=== PATIENT | male | born 1965 | race Caucasian/White ===

== ENCOUNTER 2016-08-10 19:21 | Emergency (ER) ==
[2016-08-10 19:33] VITALS: BP 157/81; TEMP 99.8; BMI 37.3
--- NOTE | 2016-08-10 19:36 | ED.PDOC ---
General ED Provider: Dr. CHEN VALDOVINOS-ER Chief Complaint: Cough Stated Complaint: im coughing up stuff and i ache all over Time Seen by Physician: 19:34 Mode of Arrival: Walk-In Information Source: Patient Exam Limitations: No limitations Primary Care Provider: KATHERIN REVELES Nursing and Triage Documentation Reviewed and Agree: Yes Respiratory Complaint Exam - Respiratory Complaint/Exam Onset/Duration: 2 days Symptoms Are: Still present Timing: Constant Initial Severity: Mild Current Severity: Mild Location: Chest Character: Reports: Non-productive cough Aggravating: Reports: URI Associated Signs and Symptoms: Reports: Fever, URI, Nasal congestion, Sore throat, Increased urination. Denies: Rapid breathing, Dyspnea, Chills, Chest pain, Pleuritic chest pain, Wheezing, Hemoptysis, Dizziness, Calf pain, Calf swelling, Edema, Hoarseness, Sinus discomfort, Vomiting, Weight loss, Decreased oral intake, Increased thirst, Increased appetite Related History: Denies: Similar episode History of Healthcare-Acquired Pneumonia: No Related Surgical History: Reports: None Tuberculosis Risk Factors: Reports: None Status Asthmaticus Risk Factors: Reports: None Home Oxygen Use: No Recent Stress Test: No Recent Echo/LV Function: No Current Antibiotic Use: No Current Asthma Medication Use: No Respiratory Distress: None Inadequate Respiratory Effort: No Dysphagia Present: No Stridor Present: No JVD Present: No Accessory Muscle Use: No Retractions: Not Present Diminished Breath Sounds: No Sinus Tenderness: None Grunting Respirations: No Kussmaul Respirations: No Differential Diagnoses: Bronchitis, URI, Influenza Review of Systems - Review Of Systems Constitutional: Reports: No symptoms Eyes: Reports: No symptoms Ears, Nose, Mouth, Throat: Reports: Nose discharge Respiratory: Reports: Cough Cardiac: Reports: No symptoms GI: Reports: No symptoms : Reports: No symptoms Musculoskeletal: Reports: No symptoms Skin: Reports: No symptoms Neurological: Reports: No symptoms Endocrine: Reports: No symptoms Hematologic/Lymphatic: Reports: No symptoms All Other Systems: Reviewed and Negative Past Medical History - Past Medical History Endocrine: Reports: Unknown Cardiovascular: Reports: Unknown Respiratory: Reports: Unknown Hematological: Reports: Unknown Gastrointestinal: Reports: Unknown Genitourinary: Reports: Unknown Neuro/Psych: Reports: Unknown Musculoskeletal: Reports: Unknown Cancer: Reports: Unknown - Surgical History General Surgical History: Reports: Unknown - Family History Family History: Reports: Unknown - Social History Smoking Status: Current every day smoker, Heavy tobacco smoker Hx Substance Use: No Alcohol Screening: None Lives: With family - Immunizations Tetanus Shot up to Date: Yes Physical Exam - Physical Exam Appearance: Well-appearing, No pain distress, Well-nourished Eyes: VICKEY, EOMI, Conjunctiva clear ENT: Ears normal, Nose normal, Oropharynx normal Neck: Supple Respiratory: Airway patent, Breath sounds equal, Respirations nonlabored, Rhonchi Cardiovascular: RRR, Pulses normal, No rub, No murmur GI/: Soft, Nontender, No masses, Bowel sounds normal, No Organomegaly Musculoskeletal: Normal strength, ROM intact, No edema, No calf tenderness Skin: Warm, Dry, Normal color Neurological: Sensation intact, Motor intact, Reflexes intact, Cranial nerves intact, Alert, Oriented Psychiatric: Affect appropriate, Mood appropriate Critical Care Note - Critical Care Note Total Time (mins): 0 Course - Course Orders, Labs, Meds: Orders Category Date Time Status RAPID FLU A/B Stat LAB 08/10/16 19:33 Uncollected Vital Signs: Temp Pulse Resp BP Pulse Ox 08/10/16 19:22 99.8 F H 93 H 20 157/81 H 97 Departure - Departure Time of Disposition: 19:36 Disposition: HOME SELF-CARE Discharge Problem: Bronchitis Instructions: Acute Bronchitis (ED) Condition: Good Pt referred to PMD for follow-up: Yes Additional Instructions: kesha medrol dose pack--tessalon perles 200mg tid prn cough 30--fluids..motrin or tylenol for aches--rcheck in 72hrs if not improved Allergies/Adverse Reactions: Allergies No Known Allergies Allergy (Verified 08/10/16 19:27) Home Medications: Ambulatory Orders Budesonide/Formoterol Fumarate [Symbicort 160-4.5 Mcg Inhaler] 1 puff INH DAILY 03/05/14 Fluticasone/Salmeterol 250/50 [Advair 250-50 Diskus] 1 puff INH DAILY 03/05/14 Metformin HCl 500 mg PO BID 03/05/14 Albuterol Sulfate [Proair Hfa] 2 puff IH Q4H PRN 08/10/16 Omeprazole Magnesium 20 mg PO DAILY 08/10/16 Disposition Discussed With: Patient, Family
[2016-08-10 20:01] LABS: FLU INTERNAL QC INTERNAL QC VALID; RAPID FLU A NEGATIVE (NEGATIVE); RAPID FLU B NEGATIVE (NEGATIVE)
== END 2016-08-10 20:07 | disposition home or self-care (01) ==
LOC: ED 19:21
DX: J20.9 Acute bronchitis, unspecified (principal); F17.210 Nicotine dependence, cigarettes, uncomplicated
CPT/HCPCS: 87804; 99283

== ENCOUNTER 2016-10-26 22:27 | Observation (INO) ==
[2016-10-26] MEDS ORDERED: ASPIRIN CHEWABLE PO STA (22:51)
--- NOTE | 2016-10-26 22:51 | ED.PDOC ---
General ED Provider: Dr. MAXI LIMA Chief Complaint: Chest Wall Injury/Pain Stated Complaint: Patient was working in the yard whole day yesterday, he is been hurting in the chest since morning, hurts to breath, and touch on the chest ,. Time Seen by Physician: 22:49 Mode of Arrival: Walk-In Information Source: Patient Primary Care Provider: KATHERIN REVELES Nursing and Triage Documentation Reviewed and Agree: Yes Cardiovascular Complaint Exam - Chest Pain Complaint/Exam Onset: Gradual Symptoms Are: Still present Timing: Constant Initial Severity: Moderate Current Severity: Mild Location: Reports: Midsternal, Upper sternal Pain Radiates: Reports: Neck Character: Reports: Sharp Aggravating: Reports: Movement, Deep breaths Alleviating: Reports: None Associated Signs and Symptoms: Denies: Diaphoresis, Nausea, Vomiting, Fever, Palpitations, Cough, Hemoptysis, Back pain, Abdominal pain, Dizziness, Short of air, Calf pain, Calf swelling Related Surgical History: Reports: None History of Healthcare-Acquired Pneumonia: Reports: No AMI/ACS Risk Factors: Reports: None TAD Risk Factors: Reports: None Pulmonary Embolism Risk Factors: Reports: None Prior Care for this Complaint: No Subcutaneous Emphysema Present: No Diminshed Breath Sounds: No Reproducible Chest Wall Pain: Yes Bilateral Pulses Present: Yes Unequal Pulses Noted: No If Risk Factors for AMI/ACS Consider: EKG, Cardiac Enzymes Differential Diagnoses: ACS, Stable Angina, Chest Wall Pain Quality Indicators For Acute CT or Cardiac Chest Pain: EKG in 10min., ASA if indicated Review of Systems - Review Of Systems Constitutional: Reports: Malaise, Weakness Eyes: Reports: No symptoms Ears, Nose, Mouth, Throat: Reports: No symptoms Respiratory: Reports: Short of air Cardiac: Reports: Chest pain GI: Reports: No symptoms : Reports: No symptoms Musculoskeletal: Reports: No symptoms Skin: Reports: No symptoms Neurological: Reports: No symptoms Endocrine: Reports: No symptoms Hematologic/Lymphatic: Reports: No symptoms All Other Systems: Reviewed and Negative Past Medical History - Past Medical History Previously Healthy: No Endocrine: Reports: DM 2 Cardiovascular: Reports: Hypertension Respiratory: Reports: COPD Hematological: Reports: None Gastrointestinal: Reports: GERD Genitourinary: Reports: None Neuro/Psych: Reports: None Musculoskeletal: Reports: None Cancer: Reports: None - Surgical History General Surgical History: Reports: Appendectomy, Cholecystectomy, Orthopedic - Family History Family History: Reports: Unknown - Social History Smoking Status: Current every day smoker, Heavy tobacco smoker Smoking Cessation Counseling Time: > 10 min Hx Substance Use: No Alcohol Screening: None - Immunizations Tetanus Shot up to Date: Yes Physical Exam - Physical Exam Appearance: Well-appearing, No pain distress, Obese Eyes: VICKEY, EOMI, Conjunctiva clear ENT: Ears normal, Nose normal, Oropharynx normal Respiratory: Airway patent, Breath sounds clear, Breath sounds equal, Respirations nonlabored Cardiovascular: RRR, Pulses normal, No rub, No murmur GI/: Soft, Nontender, No masses, Bowel sounds normal, No Organomegaly Musculoskeletal: Normal strength, ROM intact, No edema, No calf tenderness Skin: Warm, Dry, Normal color Neurological: Sensation intact, Motor intact, Reflexes intact, Cranial nerves intact, Alert, Oriented Psychiatric: Affect appropriate, Mood appropriate Critical Care Note - Critical Care Note Total Time (mins): 0 Course - Course Hematology/Chemistry: 10/26/16 22:55 10/26/16 22:55 Orders, Labs, Meds: Lab Review 10/26/16 10/26/16 22:53 22:55 WBC 14.69 H RBC 4.93 Hgb 15.0 Hct 44.2 MCV 89.7 MCH 30.4 MCHC 33.9 RDW Coeff of Rosemary 13.6 Plt Count 180 Immature Gran % (Auto) 0.4 Neut % (Auto) 62.3 Lymph % (Auto) 22.1 [place] % (Auto) 11.5 H Eos % (Auto) 3.1 Baso % (Auto) 0.6 Immature Gran # (Auto) 0.1 Neut # 9.2 H Lymph # 3.2 [place] # 1.7 Eos # 0.5 Baso # 0.1 Puncture Site Rb O2 Saturation 89.0 L ABG pH 7.397 ABG pCO2 37.8 ABG pO2 57.0 L* ABG HCO3 23.2 ABG Total CO2 24 ABG Base Excess -2 Jose Test + FiO2 % 21.0 Sodium 138 Potassium 3.9 Chloride 108 H Carbon Dioxide 20 L Anion Gap 13.9 BUN 11 Creatinine 1.09 Estimated GFR (MDRD) 71.00 BUN/Creatinine Ratio 10.09 Glucose 190 H Calcium 9.0 Total Bilirubin 0.19 AST 14 L ALT 22 Alkaline Phosphatase 64 Total Creatine Kinase 143 CK-MB (CK-2) 0.7 CK-MB (CK-2) % 0.50473 Troponin I < 0.0100 B-Natriuretic Peptide 10 Total Protein 7.8 Albumin 3.8 Globulin 4.0 Albumin/Globulin Ratio 0.95 Orders Category Date Time Status ABG DRAW REQUEST Stat CARDIO 10/26/16 22:53 Completed EKG-(ED ONLY) Stat CARDIO 10/26/16 22:46 Completed ABG Stat LAB 10/26/16 22:53 Completed B-TYPE NATRIURETIC PEPTIDE Stat LAB 10/26/16 22:55 Completed CBC W/ AUTO DIFF Stat LAB 10/26/16 22:55 Completed COMPREHENSIVE METABOLIC PANEL Stat LAB 10/26/16 22:55 Completed CREATINE KINASE Stat LAB 10/26/16 22:55 Completed TROPONIN I Stat LAB 10/26/16 22:[address] CHEST W/O CONTRAST Stat RADS 10/26/16 22:46 Completed Vital Signs: Temp Pulse Resp BP Pulse Ox 10/26/16 22:31 98.7 F 99 H 20 134/91 H 93 L KISHAN Risk Score KISHAN Risk Score: Risk Score Odds of by 30D 0 0.1 (0.1-0.2) 1 0.3 (0.2-0.3) 2 0.4 (0.3-0.5) 3 0.7 (0.6-0.9) 4 1.2 (1.0-1.5) 5 2.2 (1.9-2.6) 6 3.0 (2.5-3.6) 7 4.8 (3.8-6.1) Departure - Departure Time of Disposition: 23:49 Disposition: ADMITTED INPATIENT Discharge Problem: Hypoxemia Chest pain Qualifiers: Chest pain type: precordial pain Qualifier Code: (R07.2) Precordial pain Instructions: Chest Pain (ED), Angina (ED) Condition: Stable Pt referred to PMD for follow-up: No Allergies/Adverse Reactions: Allergies No Known Allergies Allergy (Verified 10/26/16 22:27) Home Medications: Ambulatory Orders Budesonide/Formoterol Fumarate [Symbicort 160-4.5 Mcg Inhaler] 1 puff INH DAILY 03/05/14 Fluticasone/Salmeterol 250/50 [Advair 250-50 Diskus] 1 puff INH DAILY 03/05/14 Metformin HCl 500 mg PO BID 03/05/14 Albuterol Sulfate [Proair Hfa] 2 puff IH Q4H PRN 08/10/16 Omeprazole Magnesium 40 mg PO DAILY 08/10/16 Aspirin [Aspirin EC] 325 mg PO DAILYWM PRN 10/26/16 Rosuvastatin Calcium [Crestor] 20 mg PO DAILY 10/26/16 Disposition Discussed With: Patient, Family
[2016-10-26 22:58] LABS: BASOPHILS # (AUTO) 0.1 K/uL (0-0.2); BASOPHILS % (AUTO) 0.6 % (0.0-3.0); EOSINOPHILS # (AUTO) 0.5 K/ul (0.0-0.7); EOSINOPHILS % (AUTO) 3.1 % (0.0-7.0); HEMATOCRIT 44.2 % (42.0-52.0); IMMATURE GRANULOCYTE % (AUTO) 0.4 % (0.0-5.0); LYMPHOCYTES # (AUTO) 3.2 K/uL (0.60-3.4); LYMPHOCYTES % (AUTO) 22.1 (10.0-50.0); MEAN CORPUSCULAR HEMOGLOBIN 30.4 pg (27.0-31.0); MEAN CORPUSCULAR HGB CONC 33.9 (31.8-35.4); MEAN CORPUSCULAR VOLUME 89.7 fl (80.0-94.0); MONOCYTES # (AUTO) 1.7 K/uL (0.4-2.0); MONOCYTES % (AUTO) 11.5 (0-10); NEUTROPHILS # (AUTO) 9.2 K/ul (2.0-6.9); NEUTROPHILS % (AUTO) 62.3; PLATELET COUNT 180 10^3/uL (140-440); RED BLOOD COUNT 4.93 10^6/ul (4.70-6.10); WHITE BLOOD COUNT 14.69 K/ul (4.2-10.2)
[2016-10-26 23:18] LABS: ALANINE AMINOTRANSFERASE 22 U/L (12-78); ALBUMIN 3.8 g/dL (3.4-5.0); ALBUMIN/GLOBULIN RATIO 0.95; ALKALINE PHOSPHATASE 64 U/L (50-136); ANION GAP 13.9; ASPARTATE AMINO TRANSFERASE 14 U/L (15-37); BILIRUBIN,TOTAL 0.19 mg/dL (0.00-1.20); BLOOD UREA NITROGEN 11 mg/dL (7-18); BUN/CREATININE RATIO 10.09; CARBON DIOXIDE 20 mmol/L (21-32); CHLORIDE 108 mmol/L (98-107); CREATINE KINASE 143 U/L; CREATININE 1.09 mg/dL (0.60-1.10); GLUCOSE 190 mg/dL (70-100); POTASSIUM 3.9 mmol/L (3.5-5.1); SODIUM 138 mmol/L (136-145); TOTAL PROTEIN 7.8 g/dL (6.4-8.2)
[2016-10-26 23:38] LABS: CREATINE KINASE MB 0.7 ng/ml (0.0-3.6)
--- NOTE | 2016-10-26 23:38 | CT ---
EXAM: CT of the chest without contrast. HISTORY: Injury. Pain. PROCEDURE: Contiguous axial CT images of the chest without contrast with coronal and sagittal refor mats. FINDINGS: The exam is limited without IV contrast. The heart, mediastinum and thoracic aorta are nor mal in appearance. 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 There is minimal bibasilar dependent atelectasis. The bones of the chest are intact. Impression: No evidence of acute traumatic injury to the chest. Minimal bibasilar atelectasis.
[2016-10-26 23:45] LABS: ABG BASE EXCESS -2 (-2.0-2.0); ABG HCO3 23.2 (22.0-26.0); ABG PCO2 37.8 mmHg (35-45); ABG PH 7.397 (7.35-7.45)
[2016-10-26 23:46] LABS: ABG TCO2 24 (22.0-28.0)
[2016-10-26] MEDS ORDERED: TYLENOL PO PRN (23:49)
[2016-10-27] MEDS: DUONEB NEB SCH ×5 (00:07→23:00)
[2016-10-27] MEDS: SODIUM CHLORIDE 1,000 ML IV SCH ×2 (01:12→14:49)
[2016-10-27 01:37] VITALS: BMI 36.5
[2016-10-27 06:18] LABS: BASOPHILS # (AUTO) 0.1 K/uL (0-0.2); BASOPHILS % (AUTO) 0.4 % (0.0-3.0); EOSINOPHILS # (AUTO) 0.4 K/ul (0.0-0.7); EOSINOPHILS % (AUTO) 3.2 % (0.0-7.0); HEMATOCRIT 42.4 % (42.0-52.0); HEMOGLOBIN 14.5 g/dl (14.0-18.0); IMMATURE GRANULOCYTE % (AUTO) 0.3 % (0.0-5.0); LYMPHOCYTES # (AUTO) 2.7 K/uL (0.60-3.4); LYMPHOCYTES % (AUTO) 22.2 (10.0-50.0); MEAN CORPUSCULAR HEMOGLOBIN 30.6 pg (27.0-31.0); MEAN CORPUSCULAR HGB CONC 34.2 (31.8-35.4); MEAN CORPUSCULAR VOLUME 89.5 fl (80.0-94.0); MONOCYTES # (AUTO) 1.6 K/uL (0.4-2.0); MONOCYTES % (AUTO) 12.8 (0-10); NEUTROPHILS # (AUTO) 7.5 K/ul (2.0-6.9); NEUTROPHILS % (AUTO) 61.1; PLATELET COUNT 164 10^3/uL (140-440); RED BLOOD COUNT 4.74 10^6/ul (4.70-6.10); WHITE BLOOD COUNT 12.32 K/ul (4.2-10.2)
[2016-10-27] MEDS ORDERED: PRILOSEC PO SCH (06:30)
[2016-10-27 06:41] LABS: ALBUMIN 3.5 g/dL (3.4-5.0); ALBUMIN/GLOBULIN RATIO 1.25; ANION GAP 12.7; BILIRUBIN,TOTAL 0.35 mg/dL (0.00-1.20); BUN/CREATININE RATIO 13.09; CALCIUM 8.9 mg/dL (8.2-10.2); CREATININE 0.84 mg/dL (0.60-1.10); POTASSIUM 3.7 mmol/L (3.5-5.1); TOTAL PROTEIN 6.3 g/dL (6.4-8.2); TROPONIN I 0.013 ng/ml (0.0000-0.4000)
[2016-10-27] MEDS ORDERED: DECADRON 4 MG/ML SDV IM STA (08:10)
[2016-10-27] MEDS ORDERED: TORADOL IVP STA (08:10)
[2016-10-27] MEDS: GLUCOPHAGE PO SCH ×2 (08:57→18:06)
[2016-10-27] MEDS: CRESTOR PO SCH (08:58)
[2016-10-27] MEDS: LOVENOX SUBCUT SCH (08:58)
[2016-10-27] MEDS: ROCEPHIN 1 GM in SODIUM CHLORIDE 50 ML IV SCH (08:58)
[2016-10-27] MEDS ORDERED: OMEPRAZOLE MAGNESIUM 40 MG PO SCH (09:00)
[2016-10-27] MEDS ORDERED: NON-FORMULARY MEDICATION (Rosuvastatin Calcium [Crestor] 20 MG) PO SCH ×22 (09:00)
[2016-10-27] MEDS ORDERED: NON-FORMULARY MEDICATION (Metformin Hcl [Metformin Hcl] 500 MG) PO SCH (09:00)
--- NOTE | 2016-10-27 10:00 | PCM.PROG ---
Attending Provider: ATTENDING PROVIDER: Dr. KATHERIN REVELES DATE OF SERVICE: 10/27/16 SUBJECTIVE: This 51 year old WHITE/ M was hospitalized 10/27/16. The patient is hospitalized with cough, congestion, pleuritic type of chest pain with tightness in the center of the chest and weakness. This started yesterday with a duration of 12 hours. The patient has several risk factors like CAD, diabetes, dyslipidemia and hypertension. The patient also had hypoxemia with history of COPD. REVIEW OF SYSTEMS: CONSTITUTIONAL: Weakness and fatigue. No night sweats. No fever or chills. HEENT: Eyes: No visual changes. No eye pain. No eye discharge. ENT: No runny nose. No epistaxis. No sinus pain. No odynophagia. No congestion. RESPIRATORY: Cough and congestion. No hemoptysis. CARDIOVASCULAR: Shortness of breath. No angina symptoms. No CHF symptoms. Pleuritic type chest pain. No palpitations. GASTROINTESTINAL: No abdominal pain. No nausea or vomiting. No diarrhea or constipation. No hematemesis. No hematochezia. GENITOURINARY: No urgency. No frequency. No dysuria. No hematuria. No obstructive symptoms. No discharge. No pain. No significant abnormal bleeding. MUSCULOSKELETAL: No musculoskeletal pain; no joint swelling. NEUROLOGICAL: Awake, alert, oriented to time, place and person. No headache. No neck pain. No syncope. No seizures. No dizziness. PSYCHIATRIC: Not anxious. No depression. No suicidal thoughts. No homicidal thoughts. SKIN: No rash. No lesions. No wounds. ENDOCRINE: No unexplained weight loss. No weight gain. HEMATOLOGIC/LYMPHATIC: No anemia. No purpura. No petechiae. No prolonged or excessive bleeding. No palpable lymph nodes. PHYSICAL EXAMINATION: GENERAL: The patient is awake, alert and oriented, lying/sitting in bed in no distress. VITAL SIGNS: Temperature 97.0 F, Pulse 90, Respiratory Rate 16, BP 110/68, Pulse Ox 95% HEENT: Head normocephalic, atraumatic. Eyes: Extraocular muscles are intact. Pupils are equal, round and reactive to light and accommodation. Ears: No lesions. Nose appeared normal. Throat: No exudate or erythema. NECK: Supple. No JVD, no carotid bruit. No lymphadenopathy or thyromegaly. LUNGS: Decreased breath sounds. Clear to auscultation. Percussion note normal. Chest symmetrical. HEART: S1, S2, no S3. No murmurs. No cyanosis or clubbing. No ascites. Pulses: Dorsalis pedis and posterior tibial pulses +1 to +2 both sides. ABDOMEN: Soft. Non-tender. Bowel sounds active. No CVA tenderness. No mass felt. EXTREMITIES: No edema. Full range of motion of all extremities, equal. NEUROLOGIC: No focal deficit. Cranial nerves II through XII are grossly intact. No headache, no double vision or headache. SKIN: Not dry. Intact. Turgor-normal. LYMPHATIC: No palpable lymph nodes/no lymphedema. MUSCULOSKELETAL: Normal joints with no swelling. Muscle tone is normal. LAB REVIEW: 10/27/16 06:10 10/27/16 06:10 10/27/16 06:10: WBC 12.32 H, RBC 4.74, Hgb 14.5, Hct 42.4, MCV 89.5, MCH 30.6, MCHC 34.2, RDW Coeff of Rosemary 13.6, Plt Count 164, Immature Gran % (Auto) 0.3, Neut % (Auto) 61.1, Lymph % (Auto) 22.2, [place] % (Auto) 12.8 H, Eos % (Auto) 3.2 , Baso % (Auto) 0.4, Immature Gran # (Auto) 0.0, Neut # 7.5 H, Lymph # 2.7, [place] # 1.6, Eos # 0.4, Baso # 0.1, Sodium 141, Potassium 3.7, Chloride 108 H, Carbon Dioxide 24, Anion Gap 12.7, BUN 11, Creatinine 0.84, Estimated GFR (MDRD ) 96.00, BUN/Creatinine Ratio 13.09, Glucose 162 H, Calcium 8.9, Total Bilirubin 0.35, AST 12 L, ALT 19, Alkaline Phosphatase 60, Total Creatine Kinase 92, Troponin I 0.0130, Total Protein 6.3 L, Albumin 3.5, Globulin 2.8, Albumin/Globulin Ratio 1.25 ASSESSMENT: 1. Chest pain, pleuritic type 2. Acute bronchitis. 3. Hypoxemia from chronic lung disease chronic lung disease and bronchitis PLAN: 1. Toradol 30 mg IV 2. 1 cc Decadron 3. Continue Rocephin 4. D. dimer 5. Echocardiogram 6. Stress echocardiogram 7. Rule out [facility] with cardiac workup 8. Antibiotics, steroids and anti-inflammatory medications 9. CK-MB negative Plan and coordination of the patient's care discussed in the presence of Staff Trainer and nurse. EDUCATION: Counseling for smoking done. Coronary artery disease modificiations discussed. Counseling done for weight loss, diet control, and exercise. CONDITION: Stable SCRIBED BY: TY LINTON Supervisor Soakers scribed while in presence of service performed by Dr. KATHERIN REVELES on 10/27/16 ([id number])
[2016-10-27] MEDS: PRILOSEC PO SCH (10:48)
[2016-10-27 14:50] LABS: TROPONIN I 0.017 ng/ml (0.0000-0.4000)
--- NOTE | 2016-10-27 15:23 | DI ---
EXAM: Three views of the left shoulder HISTORY: Left shoulder pain. COMPARISON: CT chest 10/26/2016 FINDINGS: There is no lytic or blastic lesion of the left shoulder. There is mild degenerative webb ge of the AC joint. Glenohumeral joint is normal. There is no displaced fracture or dislocation. T he soft tissues are normal. 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
[2016-10-28] MEDS: SODIUM CHLORIDE 1,000 ML IV SCH (04:05)
[2016-10-28] MEDS: DUONEB NEB SCH ×2 (05:10→11:04)
[2016-10-28 05:19] LABS: BASOPHILS # (AUTO) 0.1 K/uL (0-0.2); BASOPHILS % (AUTO) 0.2 % (0.0-3.0); EOSINOPHILS % (AUTO) 0.1 % (0.0-7.0); HEMATOCRIT 45.2 % (42.0-52.0); HEMOGLOBIN 15.2 g/dl (14.0-18.0); IMMATURE GRANULOCYTE % (AUTO) 1.3 % (0.0-5.0); LYMPHOCYTES # (AUTO) 2.8 K/uL (0.60-3.4); LYMPHOCYTES % (AUTO) 13.8 (10.0-50.0); MEAN CORPUSCULAR HEMOGLOBIN 30.2 pg (27.0-31.0); MEAN CORPUSCULAR HGB CONC 33.6 (31.8-35.4); MEAN CORPUSCULAR VOLUME 89.7 fl (80.0-94.0); MONOCYTES # (AUTO) 1.6 K/uL (0.4-2.0); MONOCYTES % (AUTO) 7.9 (0-10); NEUTROPHILS # (AUTO) 15.5 K/ul (2.0-6.9); NEUTROPHILS % (AUTO) 76.7; PLATELET COUNT 236 10^3/uL (140-440); RED BLOOD COUNT 5.04 10^6/ul (4.70-6.10); WHITE BLOOD COUNT 20.18 K/ul (4.2-10.2)
[2016-10-28] MEDS: PRILOSEC PO SCH (05:38)
[2016-10-28 05:45] LABS: ALBUMIN/GLOBULIN RATIO 1.21; ANION GAP 15.7; BILIRUBIN,TOTAL 0.57 mg/dL (0.00-1.20); BUN/CREATININE RATIO 12.94; CALCIUM 9.5 mg/dL (8.2-10.2); CREATININE 0.85 mg/dL (0.60-1.10); POTASSIUM 3.7 mmol/L (3.5-5.1); TOTAL PROTEIN 7.3 g/dL (6.4-8.2)
[2016-10-28] MEDS: GLUCOPHAGE PO SCH (08:18)
[2016-10-28] MEDS: CRESTOR PO SCH (09:38)
[2016-10-28] MEDS: LOVENOX SUBCUT SCH (09:39)
[2016-10-28] MEDS: ROCEPHIN 1 GM in SODIUM CHLORIDE 50 ML IV SCH (09:39)
--- NOTE | 2016-10-28 09:52 | PCM.PROG ---
Attending Provider: ATTENDING PROVIDER: Dr. KATHERIN REVELES DATE OF SERVICE: 10/28/16 SUBJECTIVE: This 51 year old WHITE/ M was hospitalized 10/27/16. The patient is hospitalized with chest pain. The patient's chest pain seems noncardiac, center of chest, and could be musculoskeletal. He has several risk factors for CAD. So far EKG and cardiac markers are negative. EKG reveals sinus rhythm with no acute changes. REVIEW OF SYSTEMS: CONSTITUTIONAL: No night sweats. No fatigue, malaise, lethargy. No fever or chills. HEENT: Eyes: No visual changes. No eye pain. No eye discharge. ENT: No runny nose. No epistaxis. No sinus pain. No odynophagia. No congestion. RESPIRATORY: No cough, no congestion. No hemoptysis. CARDIOVASCULAR: No angina symptoms. No CHF symptoms. No atypical chest pain for CAD. No palpitations. No shortness of breath. GASTROINTESTINAL: No abdominal pain. No nausea or vomiting. No diarrhea or constipation. No hematemesis. No hematochezia. GENITOURINARY: No urgency. No frequency. No dysuria. No hematuria. No obstructive symptoms. No discharge. No pain. No significant abnormal bleeding. MUSCULOSKELETAL: Left shoulder pain which is arthritic, more with movement of the shoulder. NEUROLOGICAL: Awake, alert, oriented to time, place and person. No headache. No neck pain. No syncope. No seizures. No dizziness. PSYCHIATRIC: Not anxious. No depression. No suicidal thoughts. No homicidal thoughts. SKIN: No rash. No lesions. No wounds. ENDOCRINE: No unexplained weight loss. No weight gain. HEMATOLOGIC/LYMPHATIC: No anemia. No purpura. No petechiae. No prolonged or excessive bleeding. No palpable lymph nodes. PHYSICAL EXAMINATION: GENERAL: The patient is awake, alert and oriented, lying in bed in no distress. VITAL SIGNS: Temperature 97.4 F, Pulse 90, Respiratory Rate 20, BP 117/82, Pulse Ox 95% HEENT: Head normocephalic, atraumatic. Eyes: Extraocular muscles are intact. Pupils are equal, round and reactive to light and accommodation. Ears: No lesions. Nose appeared normal. Throat: No exudate or erythema. NECK: Supple. No JVD, no carotid bruit. No lymphadenopathy or thyromegaly. LUNGS: Clear to auscultation. Percussion note normal. Chest symmetrical. HEART: S1, S2, no S3. No murmurs. No cyanosis or clubbing. No ascites. Pulses: Dorsalis pedis and posterior tibial pulses +1 to +2 both sides. ABDOMEN: Soft. Non-tender. Bowel sounds active. No CVA tenderness. No mass felt. EXTREMITIES: No edema. Full range of motion of all extremities, equal. NEUROLOGIC: No focal deficit. Cranial nerves II through XII are grossly intact. No headache, no double vision or headache. SKIN: Not dry. Intact. Turgor-normal. LYMPHATIC: No palpable lymph nodes/no lymphedema. MUSCULOSKELETAL: Normal joints with no swelling. Muscle tone is normal. LAB REVIEW: 10/28/16 05:16 10/28/16 05:16 10/28/16 05:16: WBC 20.18 H D, RBC 5.04, Hgb 15.2, Hct 45.2, MCV 89.7, MCH 30.2 , MCHC 33.6, RDW Coeff of Rosemary 13.7, Plt Count 236 D, Immature Gran % (Auto) 1.3 , Neut % (Auto) 76.7, Lymph % (Auto) 13.8, [place] % (Auto) 7.9, Eos % (Auto) 0.1, Baso % (Auto) 0.2, Immature Gran # (Auto) 0.3, Neut # 15.5 H, Lymph # 2.8, [place] # 1.6, Eos # 0.0, Baso # 0.1, Sodium 141, Potassium 3.7, Chloride 108 H, Carbon Dioxide 21, Anion Gap 15.7, BUN 11, Creatinine 0.85, Estimated GFR (MDRD) 95.00 , BUN/Creatinine Ratio 12.94, Glucose 127 H, Calcium 9.5, Total Bilirubin 0.57, AST 13 L, ALT 19, Alkaline Phosphatase 73, Total Protein 7.3, Albumin 4.0, Globulin 3.3, Albumin/Globulin Ratio 1.21 10/27/16 13:50: Total Creatine Kinase 92, Troponin I 0.0170 10/27/16 08:20: D-Dimer (Manual) 163.83 ASSESSMENT: 1. CHEST PAIN. PLAN: 1. Echocardiogram and stress echocardiogram this afternoon. 2. BMI 37 - counseling for diet done. Plan and coordination of the patient's care discussed in the presence of International Account Representative and nurse. CONDITION: Stable SCRIBED BY: TY LINTON, Scientific Research Associate scribed while in presence of service performed by Dr. KATHERIN REVELES on 10/28/16 ([id number])
[2016-10-28 10:47] VITALS: BP 118/72; TEMP 98.1
--- NOTE | 2016-10-28 12:54 | STRESSECHO ---
Date of Test: 10/28/16 Reason for Exam: CHEST PAIN, COPD, DM Ordering Physician: KATHERIN REVELES Current Medications: METFORMIN, DISKUS, SYMBICORT, OMEPRAZOLE, PROAIR, CRESTOR, ASA Physical Findings: S1, S2, NO S3 Resting EKG: SINUS RHYTHM/NO ACUTE CHANGES Target Heart Rate: 143/169 STAGE MPH/GRADE HEART RATE BPM BLOOD PRESSURE mmhg RHYTHM S-T SEGMENT +/- UP DOWN SYMPTOMS,COMMENTS At Rest 90 132/80 SR X NONE 1 1.7/10% 121 140/90 SR X NONE 2 2.5/12% 145 160/88 SR X NONE 3 3.4/14% 4 4.2/16% 5 5.0/18% Immediately after 150 150/70 SR X SHORT OF BREATH Durations of Exercise: 6:40 Maximum Heart Rate Reached: 150 Reason for Termination: SHORT OF BREATH INTERPRETATION: 94% OXYGEN SATURATION ON ROOM AIR WITH EXERCISE METS 9.0 1. NO EVIDENCE OF ISCHEMIC ST-T WAVE CHANGES 2. NO CHEST PAIN OR CHEST DISCOMFORT 3. BLOOD PRESSURE RESPONSE ADEQUATE 4. NO ARRHYTHMIAS NORMAL LEFT VENTRICULAR CONTRACTILITY--RESTING AND POST EXERCISE MTDD
--- NOTE | 2016-10-30 09:21 | DS ---
DATE OF SERVICE: 10/28/16 FINAL DIAGNOSIS: 1. Chest pain 2. Hypoxemia 3. COPD 4. Hypertension 5. Diabetes 6. GERD DISCHARGE INSTRUCTIONS: Discharge home. Continue all home medications as listed on nursing discharge. An appointment has been scheduled with Dr. Taylor on ThursdayNovember 03 at 2:45pm. No work until released by Dr. Taylor MEDICATIONS AT DISCHARGE: Symbicort Metformin Albuterol Omeprazole Aspirin Crestor NEW PRESCRIPTIONS: Keflex 500mg take one three times daily for 5 days Prednisone 10mg take one twice daily for five days. Steroid. Take with food. DIET INSTRUCTIONS: Heart healthy ACTIVITY: As tolerated SMOKING: Counseling for smoking done. DISEASE SPECIFIC EDUCATION: Cessation of smoking Counseling for weight loss Appointment New medication HOSPITAL COURSE: The patient is a 51 year old white male hospitalized with chest wall pain, chest wall injury happened while he was working. Day prior to hospitalization he was hurting during deep breath and also had chest tightness along with it. The patient has several risk factors for coronary artery disease like obesity, sedentary lifestyle, smoking, hyperlipidemia, diabetes mellitus and hypertension. The patient was observed. He got non-steroidal anti-inflammatory Toradol. His pain practically subsided. The patient had an echocardiogram done which showed normal LV contractility with LVH. Also his stress echo was negative for ischemia. His exercise tolerance was acceptable. He did match of 9. The patient has been counseled about weight loss and also counseled about smoking. Advised to quit smoking. His left shoulder pain was secondary to DJD of the left shoulder which may require further work up in a way of MRI and a referral to orthopedic surgeon. The patient at the time of discharge was feeling a lot better and he was advised to continue all his medications as before. His cough and congestion was treated as outpatient with antibiotics and steroids. The patient has bronchitis along with all the other symptoms that he had. TIME SPENT: More than 60 minutes. MTDD
--- NOTE | 2016-10-30 09:26 | PN ---
DATE OF SERVICE: 10/28/16 DISCHARGE NOTE SUBJECTIVE: The patient is a 51 year old white male hospitalized with chest wall pain, chest wall injury happened while he was working. Day prior to hospitalization he was hurting during deep breath and also had chest tightness along with it. The patient has several risk factors for coronary artery disease like obesity, sedentary lifestyle, smoking, hyperlipidemia, diabetes mellitus and hypertension. The patient was observed. He got non-steroidal anti-inflammatory Toradol. His pain practically subsided. The patient had an echocardiogram done which showed normal LV contractility with LVH. Also his stress echo was negative for ischemia. His exercise tolerance was acceptable. He did match of 9. The patient has been counseled about weight loss and also counseled about smoking. Advised to quit smoking. His left shoulder pain was secondary to DJD of the left shoulder which may require further work up in a way of MRI and a referral to orthopedic surgeon. The patient at the time of discharge was feeling a lot better and he was advised to continue all his medications as before. His cough and congestion was treated as outpatient with antibiotics and steroids. The patient has bronchitis along with all the other symptoms that he had. The patient has been on Symbicort, Metformin, Albuterol, Omeprazole, Aspirin and Crestor REVIEW OF SYSTEMS: CONSTITUTIONAL: No night sweats. No fatigue, malaise, lethargy. No fever or chills. HEENT: Eyes: No visual changes. No eye pain. No eye discharge. ENT: No runny nose. No epistaxis. No sinus pain. No sore throat. No odynophagia. No congestion. RESPIRATORY: No cough, no congestion. No hemoptysis. CARDIOVASCULAR: No angina symptoms. No CHF symptoms. No atypical chest pain for CAD. No palpitations. No shortness of breath. GASTROINTESTINAL: No abdominal pain. No nausea or vomiting. No diarrhea or constipation. No hematemesis. No hematochezia. GENITOURINARY: No urgency. No frequency. No dysuria. No hematuria. No obstructive symptoms. No discharge. No pain. No significant abnormal bleeding. MUSCULOSKELETAL: No musculoskeletal pain; no joint swelling. NEUROLOGICAL: No headache. No neck pain. No syncope. No seizures. No dizziness. PSYCHIATRIC: Not anxious. No depression. No suicidal thoughts. No homicidal thoughts. SKIN: No rash. No lesions. No wounds. ENDOCRINE: No unexplained weight loss. No weight gain. HEMATOLOGIC/LYMPHATIC: No anemia. No purpura. No petechiae. No prolonged or excessive bleeding. No palpable lymph nodes. PHYSICAL EXAMINATION: GENERAL: The patient is oriented to time, place and person. VITAL SIGNS: Temperature 98.1, pulse 83, respiratory rate 14, blood pressure 118/72 and pulse ox 96%. HEENT: Head normocephalic, atraumatic. Eyes: Extraocular muscles are intact. Pupils are equal, round and reactive to light and accommodation. Ears: No lesions. Nose appeared normal. Throat: No exudate or erythema. NECK: Supple. No JVD, no carotid bruit. No lymphadenopathy or thyromegaly. LUNGS: Clear to auscultation. Percussion note normal. Chest symmetrical. HEART: S1, S2, no S3. No murmurs. No cyanosis or clubbing. No ascites. Pulses: Dorsalis pedis and posterior tibial pulses +1 to +2 both sides. ABDOMEN: Soft. Nontender. Bowel sounds active. No CVA tenderness. No mass felt. EXTREMITIES: No edema. Full range of motion of all extremities, equal. NEUROLOGIC: No focal deficit. Cranial nerves II through XII are grossly intact. No headache, no double vision or headache. SKIN: Not dry. Intact. Turgor - normal. LYMPHATIC: No palpable lymph nodes/no lymphedema. MUSCULOSKELETAL: Normal joints with no swelling. Muscle tone is normal. ASSESSMENT: 1. Chest pain 2. Hypoxemia 3. COPD 4. Hypertension 5. Diabetes 6. GERD PLAN: 1. Discharge home 2. Followup with Dr. Taylor on November 03 at 2:45pm. 3. No work until told by Dr. Taylor TIME SPENT: More than 30 minutes. Plan and coordination of the patient's care discussed in the presence of nurse. SHERON
--- NOTE | 2016-11-03 13:34 | ECHOSTRESS ---
Date of Exam: 10/28/16 Ordering Physician: KATHERIN REVELES Reason for Echo: CHEST PAIN, DM, COPD, STRESS TEST--NO ISCHEMIA M-Mode Normal Adult Results LV Dimensions Normal Adult Results AoV Opening excursions >1.6 LVEDD-base- 3.5-5.8 Ao root dimensions 2.0-3.7 LVESD-base- 3.1-4.6 L. Atrium dimensions 1.9-3.8 Post. Wall thickness 0.8-1.1 IV septum (thickness) 0.7-1.2 Post. Wall excursion 0.72-1.3 Septal motion Systolic motion R. Ventricular cavity 1.5-2.0 LVEF 60% Paradoxical septal wall motion 2-D: NORMAL LEFT VENTRICULAR CONTRACTILITY--RESTING AND POST EXERCISE M-MODE: MV: AV: TV: PV: CHAMBER SIZE: WALL MOTION: NORMAL LEFT VENTRICULAR CONTRACTILITY--RESTING AND POST EXERCISE PERICARDIUM: INTERPRETATION: 1. NORMAL LEFT VENTRICULAR CONTRACTILITY--RESTING AND POST EXERCISE MTDD
--- NOTE | 2016-11-03 13:39 | ECHO2D ---
Date of Exam: 10/28/16 Ordering Physician: KATHERIN REVELES Reason for Echo: CHEST PAIN, DM, COPD M-Mode Normal Adult Results LV Dimensions Normal Adult Results AoV Opening excursions >1.6 >1.6 LVEDD-base- 3.5-5.8 5.3 Ao root dimensions 2.0-3.7 3.6 LVESD-base- 3.1-4.6 L. Atrium dimensions 1.9-3.8 4.2 Post. Wall thickness 0.8-1.1 1.2 IV septum (thickness) 0.7-1.2 1.2 Post. Wall excursion 0.72-1.3 NORMAL Septal motion NORMAL Systolic motion R. Ventricular cavity 1.5-2.0 NORMAL LVEF 60% NORMAL Paradoxical septal wall motion NORMAL 2-D : ENLARGED LEFT ATRIAL CAVITY--NORMAL LEFT VENTRICULAR CONTRACTILITY-- NORMAL VALVES, NO EFFUSION, NO THROMBUS, NORMAL LEFT VENTRICLE SIZE M-MODE: MV: NORMAL AV: NORMAL TV: NORMAL PV: CHAMBER SIZE: ENLARGED LEFT ATRIAL SIZE WALL MOTION: NORMAL PERICARDIUM: NORMAL INTERPRETATION: 1. LEFT VENTRICULAR HYPERTROPHY WITH ENLARGED LEFT ATRIAL SIZE 2. NORMAL LEFT VENTRICULAR CONTRACTILITY 3. NORMAL VALVES MTDD
== END 2016-10-28 13:00 | disposition home or self-care (01) ==
LOC: ED 22:27 → MEDSURG A 10-27 00:04 → INTOOBSV 10-27 00:04
PROVIDERS: ADMIT Internal Medicine; ATTEND Internal Medicine
DX: R07.2 Precordial pain (principal); J44.9 Chronic obstructive pulmonary disease, unspecified; I51.7 Cardiomegaly; E66.9 Obesity, unspecified; I10 Essential (primary) hypertension; R09.02 Hypoxemia; R06.02 Shortness of breath; E11.9 Type 2 diabetes mellitus without complications; M19.012 Primary osteoarthritis, left shoulder; K21.9 Gastro-esophageal reflux disease without esophagitis; F17.200 Nicotine dependence, unspecified, uncomplicated; Z72.3 Lack of physical exercise; Z68.37 Body mass index [BMI] 37.0-37.9, adult; Z71.3 Dietary counseling and surveillance; Y93.H2 Activity, gardening and landscaping; Z79.84 Long term (current) use of oral hypoglycemic drugs; Z79.899 Other long term (current) drug therapy
CPT/HCPCS: 36415; 80053; 82550; 82553; 82803; 83880; 84484; 85025; 85379; 93005; 93010; 94640; 96361; 96365; 96366; 96372; 96375; 97802; 99284

== ENCOUNTER 2017-10-15 10:37 | Emergency (ER) ==
[2017-10-15 10:44] VITALS: BP 162/97; TEMP 98.1; BMI 38.2
--- NOTE | 2017-10-15 11:30 | ED.PDOC ---
General ED Provider: Dr. 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 Takes omperazole 40 mg daily for acid reflux. Is slightly better now. Discussed with Dr Powell who was in dept and saw patient Time Seen by Physician: 10:50 Mode of Arrival: Walk-In Information Source: Patient Primary Care Provider: KATHERIN REVELES Nursing and Triage Documentation Reviewed and Agree: Yes Reviewed sepsis parameters & appropriate labs ordered?: Yes System Inflammatory Response Syndrome: Not Applicable Sepsis Protocol: For patient's 13 years and over: Temp is 96.8 and below OR 101 and greater Pulse >90 BPM Resp >20/minute Acutely Altered Mental Status Are patient's symptoms suggestive of a new infection, such as: -Pneumonia -Skin, Soft Tissue -Endocarditis -UTI -Bone, Joint Infection -Implantable Device -Acute Abdominal Infection -Wound Infection -Meningitis -Blood Stream Catheter Infection -Unknown System Inflammatory Response Syndrome: Not Applicable GI Complaint Exam - Abdominal Pain Complaint/Exam Onset: Sudden Duration: 30 min Symptoms Are: Still present (but improved) Timing: Constant (but less frequent) Initial Severity: Severe Current Severity: Mild Location of Pain: Epigastric Radiates To: Denies: Chest, Flank, LLQ, RLQ Character: Reports: Sharp (like a bubble that popped) Aggravating: Reports: None Alleviating: Reports: Position Associated Signs and Symptoms: Reports: Nausea. Denies: Diaphoresis, Fever, Cough Related History: Denies: Similar episode AAA Risk Factors: Denies: Prior AAA, Primary relative AAA Cardiac Risk Factors: Reports: DM, Hypertension Testicular Torsion Risk Factors: Reports: None Surgical Obstruction Risk Factors: Reports: None Related Surgical History: Reports: None Abdominal Findings: Absent: Pulsatile mass, Abdominal distention, Unequal femoral pulses, Rebound tenderness, Peritoneal signs, McBurney's Point tender, CVA Tenderness, Hernia, Inguinal swelling Genitalia Exam: Present: Normal findings Differential Diagnoses: Gastroenteritis, Other (Gastritis. Hiatal Hernia; GERD) Quality Indicators for AMI: EKG in 10min. Quality Indicators for Cardiac Chest Pain: EKG in 10min. - Vomiting/Diarrhea Complaint/Exam Differential Diagnoses: Viral Gastroenteritis, Other (hiatal hernia and gerd) Review of Systems - Review Of Systems Constitutional: Reports: No symptoms Eyes: Reports: No symptoms Ears, Nose, Mouth, Throat: Reports: No symptoms Respiratory: Reports: No symptoms Cardiac: Reports: No symptoms. Denies: Chest pain, Irregular heart rate, Palpitations GI: Reports: No symptoms, Nausea, Other (dyspepsia) : Reports: No symptoms Musculoskeletal: Reports: No symptoms Skin: Reports: No symptoms Neurological: Reports: No symptoms Endocrine: Reports: No symptoms Hematologic/Lymphatic: Reports: No symptoms All Other Systems: Reviewed and Negative Past Medical History - Past Medical History Previously Healthy: No Endocrine: Reports: DM 2 Cardiovascular: Reports: Hypertension Respiratory: Reports: COPD Hematological: Reports: None Gastrointestinal: Reports: GERD Genitourinary: Reports: None Neuro/Psych: Reports: None Musculoskeletal: Reports: None Cancer: Reports: None - Surgical History General Surgical History: Reports: Appendectomy, Cholecystectomy, Orthopedic - Family History Family History: Reports: Unknown - Social History Smoking Status: Current every day smoker, Heavy tobacco smoker Hx Substance Use: No Alcohol Screening: None Physical Exam - Physical Exam Appearance: Well-appearing, No pain distress, Well-nourished Eyes: VICKEY, EOMI, Conjunctiva clear ENT: Ears normal, Nose normal, Oropharynx normal Respiratory: Airway patent, Breath sounds clear, Breath sounds equal, Respirations nonlabored Cardiovascular: RRR, Pulses normal, No rub, No murmur GI/: Soft, Nontender, No masses, Bowel sounds normal, No Organomegaly, Tender Musculoskeletal: Normal strength, ROM intact, No edema, No calf tenderness Skin: Warm, Dry, Normal color Neurological: Sensation intact, Motor intact, Reflexes intact, Cranial nerves intact, Alert, Oriented Psychiatric: Affect appropriate, Mood appropriate Critical Care Note - Critical Care Note Total Time (mins): 0 Course - Course Hematology/Chemistry: 10/15/17 11:05 10/15/17 11:05 Orders, Labs, Meds: Lab Review 10/15/17 10/15/17 11:05 11:05 WBC 10.38 H RBC 4.69 L Hgb 13.9 L Hct 41.0 L MCV 87.4 MCH 29.6 MCHC 33.9 RDW Coeff of Rosemary 13.2 Plt Count 196 Immature Gran % (Auto) 0.6 Neut % (Auto) 55.4 Lymph % (Auto) 30.1 [place] % (Auto) 9.9 Eos % (Auto) 3.3 Baso % (Auto) 0.7 Immature Gran # (Auto) 0.1 Neut # (Auto) 5.8 Lymph # (Auto) 3.1 [place] # (Auto) 1.0 Eos # (Auto) 0.3 Baso # (Auto) 0.1 Sodium 138 Potassium 3.8 Chloride 102 Carbon Dioxide 28 Anion Gap 11.8 BUN 10 Creatinine 0.86 Estimated GFR (MDRD) 93.00 BUN/Creatinine Ratio 11.62 Glucose 160 H Calcium 9.5 Total Bilirubin 0.5 AST 17 ALT 20 Alkaline Phosphatase 74 Total Creatine Kinase 122 CK-MB (CK-2) 1.1 CK-MB (CK-2) % 0.92920 Troponin I < 0.0100 Total Protein 7.0 Albumin 3.6 Globulin 3.4 Albumin/Globulin Ratio 1.06 Orders Category Date Time Status EKG-(ED ONLY) Stat CARDIO 10/15/17 10:53 Completed CBC W/ AUTO DIFF Stat LAB 10/15/17 11:05 Completed COMPREHENSIVE METABOLIC PANEL Stat LAB 10/15/17 11:05 Completed CREATINE KINASE Stat LAB 10/15/17 11:05 Completed TROPONIN I Stat LAB 10/15/17 11:05 Completed Mag-Al Plus//Lidocaine [Gi Cocktail] MEDS 10/15/17 13:36 Discontinued 30 ml PO ONCE STA CHEST, 1V AP ONLY Stat RADS 10/15/17 10:53 Completed Medications Discontinued Medications Generic Name Dose Route Start Last Admin Trade Name Freq PRN Reason Stop Dose Admin Al Hydroxide/Mg Hydroxide 30 ml 10/15/17 13:36 10/15/17 13:41 Gi Cocktail PO 10/15/17 13:37 30 ml ONCE STA Administration Vital Signs: Temp Pulse Resp BP Pulse Ox 10/15/17 10:39 98.1 F 75 16 162/97 H 97 Departure - Departure Time of Disposition: 14:10 Disposition: HOME SELF-CARE Discharge Problem: Gastric reflux syndrome Instructions: Gastritis (ED), Gastroesophageal Reflux Disease (ED) Condition: Good Pt referred to PMD for follow-up: Yes (Dr Reveles) IPMP verified?: No Additional Instructions: Was given GI cocktail with complete resolution of symptoms Take omperazole 40 mg daily Take antacids as directed Avoid acidic or extremely spicy /greasy foods Always eat meal three times daily if possible Allergies/Adverse Reactions: Allergies No Known Allergies Allergy (Verified 10/15/17 10:38) Home Medications: Ambulatory Orders Budesonide/Formoterol Fumarate [Symbicort 160-4.5 Mcg Inhaler] 1 puff INH DAILY 03/05/14 Fluticasone/Salmeterol 250/50 [Advair 250-50 Diskus] 1 puff INH DAILY 03/05/14 Metformin HCl 1,000 mg PO BID 03/05/14 Albuterol Sulfate [Proair Hfa] 2 puff IH Q4H PRN 08/10/16 Omeprazole Magnesium 40 mg PO DAILY 08/10/16 Aspirin [Aspirin EC] 325 mg PO DAILYWM PRN 10/26/16 Albuterol Sulfate [Proair Hfa] 8.5 gm INH DAILY 10/15/17 Simvastatin [Zocor] 40 mg PO DAILY 10/15/17 Disposition Discussed With: Patient, Family
--- NOTE | 2017-10-15 11:46 | DI ---
EXAM: Chest one view HISTORY: Chest pain COMPARISON: CT chest 10/26/2016 TECHNIQUE: Single view of the chest was performed FINDINGS: The lungs are clear. Azygos fissure noted. There is no pleural effusion or pneumothorax. The heart is borderline enlarged in size. The mediastinal contour is normal. There are no acute abn ormalities of the bones. IMPRESSION: No acute cardiopulmonary process.
[2017-10-15] MEDS ORDERED: GI COCKTAIL PO STA (13:36)
== END 2017-10-15 14:27 | disposition home or self-care (01) ==
LOC: ED 10:37
DX: K21.9 Gastro-esophageal reflux disease without esophagitis (principal); E11.9 Type 2 diabetes mellitus without complications; I10 Essential (primary) hypertension; F17.210 Nicotine dependence, cigarettes, uncomplicated; Z79.899 Other long term (current) drug therapy
CPT/HCPCS: 36415; 80053; 82550; 82553; 84484; 85025; 93005; 93010; 99283

== ENCOUNTER 2017-12-17 15:58 | Outpatient (CLI) ==
--- NOTE | 2017-12-17 17:07 | DI ---
EXAM: Thoracic spine radiographs. HISTORY: Back pain. COMPARISON: Chest radiograph 10/15/2017, chest CT 10/26/2016. TECHNIQUE: Frontal, lateral and swimmer's views. FINDINGS: The normal curvature and alignment are maintained. Vertebral body and intervertebral disc heights are normal. No fracture or subluxation seen. Adjacent soft tissues are unremarkable. IMPRESSION: No acute abnormality of the thoracic spine.
--- NOTE | 2017-12-17 17:08 | DI ---
EXAM: Lumbar spine radiographs. HISTORY: Back pain. Bilateral sciatica. COMPARISON: None available. TECHNIQUE: Three views of the lumbar spine. FINDINGS: Curvature and alignment are normal. Vertebral body heights are maintained. There is mild loss of disc height at L4-5. Mild multilevel endplate osteophyte formation noted. Mild lower lumba r facet arthropathy is present. No fracture or subluxation detected. Sacral arcuate lines intact. Clips noted in the right abdomen. IMPRESSION: Mild multilevel degenerative changes.
== END 2017-12-17 15:59 | disposition home or self-care (01) ==
LOC: RAD 15:58
PROVIDERS: ATTEND Internal Medicine
DX: M54.41 Lumbago with sciatica, right side (principal); M54.42 Lumbago with sciatica, left side

== ENCOUNTER 2018-01-04 14:44 | Outpatient (CLI) ==
--- NOTE | 2018-01-04 16:30 | MRI ---
EXAM: MRI lumbar spine without IV contrast. DATE: 01/04/2018. HISTORY: Low back pain. TECHNIQUE: Sagittal and axial T1W and T2W sequences of the lumbar spine along with sagittal IR and c oronal T2W sequences were obtained using 1.2 Maile magnet. No IV contrast. COMPARISON: LS spine series 17 December 2017. T-spine series [address] chest 10/09/2016. CT ab domen/pelvis March 2010. FINDINGS: There are four classic [id number]-scy-botigbb lumbar vertebra (L2 through L5). At the thoracolum bar junction, there is a transitional L1 vertebra with hypoplastic ribs. There is no lumbar scoliosis. A 1.7 mm anterior subluxation of S1 relative to L5 is noted. No other subluxation, acute fracture, osseous malignancy, or pars interarticularis defect is demonstrated. N o lumbar vertebra are normal in height. Bone marrow signal is overall normal. Small osteophytes are seen at several lumbar vertebra. Disc desiccation is noted at L2-3 through L5-S1. Intervertebral d iscs are normal in height. No acute sacral fracture or stress reaction is demonstrated. Visible SI joints are unremarkable. Conus medullaris terminates at L1-2. Visible spinal cord is normal. No retroperitoneal lymphadenopathy, paraspinal mass, or aortic aneurysm is identified. Paraspinal mu sculature is symmetric bilaterally. Visible portions of the liver, spleen, adrenal glands and right kidney reveal no abnormality. A T2W bright, T1W dark, 2.9 x 3.9 cm lesion extending off the posterio r cortex upper pole left kidney corresponds with a slightly smaller (2.7 x 3.6 cm), low density (HU = 21) focus on prior chest CT. Segmental analysis: T11-12: Minor posterior disc bulge does not cause cord compression or central stenosis. Minor facet arthropathy causes slight bilateral frontal encroachment. T12-L1: Normal. L1-2: Normal. L2-3: Normal. L3-4: Normal. L4-5: Minor posterior disc bulge and minor facet arthropathy cause mild left foraminal stenosis. No central canal stenosis. L5-S1: Minor anterolisthesis of S1, small concentric disc bulge, and minor facet arthropathy cause m ild bilateral foraminal stenoses. No central canal stenosis. IMPRESSIONS: 1. Lumbar spine mild spondylosis, minor facet arthropathy, and minor DDD. 2. Mild foraminal stenoses at L4-5 and L5-S1. No definitive nerve compression. 3. No lumbar spine central canal stenosis. 4. Transitional L1 vertebra (hypoplastic ribs). 5. Left kidney probable exophytic cortical cyst.
== END 2018-01-04 14:45 | disposition home or self-care (01) ==
LOC: RAD 14:44
PROVIDERS: ATTEND Internal Medicine
DX: M54.5 Low back pain (principal)

== ENCOUNTER 2018-11-30 01:46 | Emergency (ER) | payer OTHER ==
[2018-11-30 01:46] VITALS: BMI 38.2
[2018-11-30 01:51] VITALS: BP 163/100; TEMP 98.8
--- NOTE | 2018-11-30 02:03 | ED.PDOC ---
General ED Provider: Dr. HAYDEE VALLECILLO Chief Complaint: Fall Stated Complaint: Fall; R leg injury Time Seen by Physician: 01:57 Mode of Arrival: Walk-In Information Source: Patient Primary Care Provider: KATHERIN REVELES Nursing and Triage Documentation Reviewed and Agree: Yes Does patient meet sepsis criteria?: No System Inflammatory Response Syndrome: Not Applicable Sepsis Protocol: For patient's 13 years and over: Temp is 96.8 and below OR 101 and greater Pulse >90 BPM Resp >20/minute Acutely Altered Mental Status Are patient's symptoms suggestive of a new infection, such as: -Pneumonia -Skin, Soft Tissue -Endocarditis -UTI -Bone, Joint Infection -Implantable Device -Acute Abdominal Infection -Wound Infection -Meningitis -Blood Stream Catheter Infection -Unknown Review of Systems - Review Of Systems Constitutional: Reports: No symptoms Ears, Nose, Mouth, Throat: Reports: No symptoms Respiratory: Reports: No symptoms. Denies: Cough, Short of air Cardiac: Reports: No symptoms. Denies: Chest pain, Edema Musculoskeletal: Reports: Back pain (Chronic; no change) Skin: Reports: Bruising (Right elbow, knee and anterior tibia) All Other Systems: Reviewed and Negative Past Medical History - Past Medical History Previously Healthy: No Endocrine: Reports: DM 2 Cardiovascular: Reports: Hypertension Respiratory: Reports: COPD Hematological: Reports: None Gastrointestinal: Reports: GERD Genitourinary: Reports: None Neuro/Psych: Reports: None Musculoskeletal: Reports: None Cancer: Reports: None - Surgical History General Surgical History: Reports: Appendectomy, Cholecystectomy, Orthopedic - Family History Family History: Reports: Unknown - Social History Smoking Status: Current every day smoker, Heavy tobacco smoker Hx Substance Use: No Alcohol Screening: None Physical Exam - Physical Exam Appearance: Well-appearing Ill-appearing: None Pain Distress: Mild Eyes: VICKEY, EOMI ENT: Oropharynx normal Neck: Supple Respiratory: Airway patent, Breath sounds clear, Breath sounds equal, Respirations nonlabored Cardiovascular: RRR, Pulses normal GI/: Soft, Nontender, Bowel sounds normal Musculoskeletal: Normal strength, ROM intact, No edema Skin: Warm, Dry, Normal color (Except for ecchymosis, r elbow, knee and anterior LE) Neurological: Sensation intact, Motor intact, Alert, Oriented Psychiatric: Affect appropriate, Mood appropriate Interpretation - Radiology Interpretation Radiology Results: Negative Exam Interpreted: Other (R elbow; R knee and R hip - no acute changes) Critical Care Note - Critical Care Note Total Time (mins): 10 Course - Course Orders, Labs, Meds: Orders Category Date Time Status ELBOW, RIGHT MIN 3 VIEWS Stat RADS 11/30/18 02:03 Ordered HIP, RIGHT 2 VIEWS Stat RADS 11/30/18 02:04 Ordered KNEE, RIGHT 4 VIEWS Stat RADS 11/30/18 02:05 Ordered Vital Signs: Temp Pulse Resp BP Pulse Ox 11/30/18 01:46 98.8 F 104 H 18 163/100 H 96 Departure - Departure Time of Disposition: 02:49 Disposition: HOME SELF-CARE Discharge Problem: Multiple contusions Instructions: Knee Pain (ED), Hip Contusion (ED) Condition: Stable Pt referred to PMD for follow-up: Yes (Call for appointment) IPMP verified?: No Additional Instructions: Call Dr. Reveles's office and make an appointment to be seen. Use pain medication as prescribed or tylenol. Prescriptions: Tramadol HCl [Ultram] 50 mg PO Q6H #14 tablet Allergies/Adverse Reactions: Allergies No Known Allergies Allergy (Verified 11/30/18 01:49) Home Medications: Ambulatory Orders Budesonide/Formoterol Fumarate [Symbicort 160-4.5 Mcg Inhaler] 1 puff INH DAILY 03/05/14 Fluticasone/Salmeterol 250/50 [Advair 250-50 Diskus] 1 puff INH DAILY 03/05/14 Metformin HCl 1,000 mg PO BID 03/05/14 Albuterol Sulfate [Proair Hfa] 2 puff IH Q4H PRN 08/10/16 Omeprazole Magnesium 40 mg PO DAILY 08/10/16 Aspirin [Aspirin EC] 325 mg PO DAILYWM PRN 10/26/16 Albuterol Sulfate [Proair Hfa] 8.5 gm INH DAILY 10/15/17 Simvastatin [Zocor] 40 mg PO DAILY 10/15/17 Tramadol HCl [Ultram] 50 mg PO Q6H #14 tablet 11/30/18
--- NOTE | 2018-11-30 02:54 | DI ---
EXAM: Right hip, two views, 11/30/2018 HISTORY: Fall. Pain COMPARISON: 10/10/2007 FINDINGS / IMPRESSION: The visualized osseous structures appear intact. Anatomic alignment appears within normal limits. There is no evidence of fracture or dislocation. Mild osteoarthritic degenerative change. No acute osseous abnormality.
--- NOTE | 2018-11-30 02:54 | DI ---
EXAM: Right knee, four views 11/30/2018 HISTORY: Fall. Pain COMPARISON: None. FINDINGS / IMPRESSION: The visualized osseous structures appear intact. Anatomic alignment appears within normal limits. There is no evidence of fracture or dislocation. Mild osteoarthritic degenerative change No acute osseous abnormality.
--- NOTE | 2018-11-30 02:55 | DI ---
EXAM: Right elbow, three views, 11/30/2018 HISTORY: Fall. Pain COMPARISON: None. FINDINGS / IMPRESSION: The visualized osseous structures appear intact. Anatomic alignment appears within normal limits. There is no evidence of fracture or dislocation. No acute osseous abnormality.
== END 2018-11-30 02:59 | disposition home or self-care (01) ==
LOC: ED 01:46
DX: S50.01XA Contusion of right elbow, initial encounter (principal); S80.01XA Contusion of right knee, initial encounter; S80.11XA Contusion of right lower leg, initial encounter; W19.XXXA Unspecified fall, initial encounter; M54.9 Dorsalgia, unspecified; G89.29 Other chronic pain; F17.210 Nicotine dependence, cigarettes, uncomplicated
CPT/HCPCS: 99283

== ENCOUNTER 2025-02-16 10:54 | Inpatient (IN) ==
--- NOTE | 2025-02-16 11:06 | ED.PDOC ---
General [facility] ED Provider: Dr. ROMERO HUTTON MD Chief Complaint: Extremity Swelling/Pain Stated Complaint: Patient is a 59-year-old male that reported to the emergency department with left upper extremity pain and swelling. Patient was seen for the same issue a week ago on Thursday and was diagnosed with left elbow edema. Patient stated that since that time he has continued to have erythema from the left elbow along the left triceps. Patient stated that he is taken his hydrocodone and other deqc-yxt-hrqruzr medications with minimal relief. Patient stated that now he started to feel nauseated due to the discomfort. Patient stated that he has not had any fever. Patient stated that he does not notice any insect or animal bites at the site of the erythema along the triceps. He stated that the area is warm to touch. Patient denies any recent injuries to the left arm. Patient states that touching the swelling in the area of the left triceps makes the pain worse. Patient stated that nothing is made it better. Patient denies any other acute symptoms at the current time. Patient's vital signs are stable. Patient's GCS is 15. Time Seen by Provider: 02/16/25 10:59 Mode of Arrival: Walk-In Information Source: Patient Exam Limitations: No limitations Primary Care Provider: JANIE LE APRN Nursing and Triage Documentation Reviewed and Agree: Yes Opioid Naive vs. Tolerant What is Opioid Naive?: *Opioid Naive implies the patient is not already taking opioids or not chronically receiving opioids on a daily basis. *PRN dosing is not "usually" associated with tolerance. *Patients are at higher risk of over-sedation and aspiration. What is Opioid Tolerant?: *Opioid Tolerance implies less than the expected response to an opioid. *Acquired tolerance is defined by the patient taking 60mg of oral morphine daily (or equianalgesic dose of another opioid) for 1 week or more. *Often associated with chronic pain. *May take more than usual dose to achieve desired pain control. Review of Systems Review Of Systems Constitutional: Reports No symptoms Skin: Reports Other (Cellulitis like swelling left triceps area.) All Other Systems: Reviewed and Negative [facility] Medical History Headache R51.9 - Headache, unspecified (ICD-10) Dizziness R42 - Dizziness and giddiness (ICD-10) Allergic rhinitis J30.9 - Allergic rhinitis, unspecified (ICD-10) Stress at work Z56.6 - Other physical and mental strain related to work (ICD-10) Testicular pain N50.819 - Testicular pain, unspecified (ICD-10) Excessive daytime sleepiness G47.19 - Other hypersomnia (ICD-10) Snoring R06.83 - Snoring (ICD-10) Fatigue R53.83 - Other fatigue (ICD-10) Finger laceration left middle finger S61.219A - Laceration without foreign body of unspecified finger without damage to nail, initial encounter (ICD-10) Exposure to 2019 novel coronavirus Z20.828 - Contact with and (suspected) exposure to other viral communicable diseases (ICD-10) Plantar fasciitis M72.2 - Plantar fascial fibromatosis (ICD-10) Family History FATHER Diabetes Heart attack Mother Diabetes Cancer PATERNAL GRANDFATHER Stroke Social History Smoking and tobacco status: Current some day smoker Tobacco type: cigarettes Tobacco: How many years used: 20 Alcohol intake: never Substance use type: marijuana Vee/rastafarian: OTHER Special vee needs: No Agree to transfusion: Yes Adopted: No Caregiver/support person: No Foster care: No Household members: spouse Housing: house Marital status: M Lives independently: Yes Number of children: 5 Number of grandchildren: 15 service: No senior living: No Current occupational status: employed 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 Pets and animals: Yes History of recent travel: No Do you think of yourself as: straight/heterosexual Current gender identity: male Seatbelt use: always Drives intoxicated or rides with intoxicated cdl bulk driver: No Water heater temperature set < 120 degrees: Yes Working smoke detector in home: Yes Fire extinguisher in home: Yes Carbon monoxide detector in home: Yes Firearms in home: No Surgical History History of appendectomy Z90.49 - Acquired absence of other specified parts of digestive tract (ICD- 10) Physical Exam Physical Exam Appearance: Reports Well-appearing, No pain distress and Well-nourished Ill-appearing: None Pain Distress: None Eyes: Reports VICKEY, EOMI and Conjunctiva clear ENT: Reports Nose normal and Oropharynx normal Respiratory: Reports Airway patent, Breath sounds clear, Breath sounds equal and Respirations nonlabored Cardiovascular: Reports RRR and Pulses normal GI/: Reports Soft, Nontender and Bowel sounds normal Musculoskeletal: Reports Normal strength, ROM intact and Other (Patient has erythema and induration from the left proximal forearm to the left elbow up the left tricep to the axilla. No discharge noted. No abrasions or punctures or lacerations. Tender to palpation and warm to touch. Compartments soft. Capillary refill brisk and gross sensation intact) Skin: Reports Warm, Dry and Normal color Neurological: Reports Sensation intact, Motor intact, Alert and Oriented Psychiatric: Reports Affect appropriate and Mood appropriate Physician Progress Note Physician Progress Note: Patient is a 59-year-old male that reported to the emergency department with left upper extremity pain and swelling. Patient was seen for the same issue a week ago on Thursday and was diagnosed with left elbow edema. Patient stated that since that time he has continued to have erythema from the left elbow along the left triceps. Patient stated that he is taken his hydrocodone and other jezo-gai-nqkncuq medications with minimal relief. Patient stated that now he started to feel nauseated due to the discomfort. Patient stated that he has not had any fever. Patient stated that he does not notice any insect or animal bites at the site of the erythema along the triceps. He stated that the area is warm to touch. Patient denies any recent injuries to the left arm. Patient states that touching the swelling in the area of the left triceps makes the pain worse. Patient stated that nothing is made it better. Patient denies any other acute symptoms at the current time. Patient's vital signs are stable. Patient's GCS is 15. - Will order baseline labs. - Due to patient's nausea and generalized "not feeling well ", will order strep, flu, and COVID test. - Will order an ultrasound venous duplex of the left upper extremity to rule out DVT as a reasoning for the swelling and erythema of the left tricep. - Venous ultrasound of the left upper extremity shows 1. No deep venous thrombosis (DVT) in the left upper extremity. 2. No superficial venous thrombosis (SVT) in the left upper extremity. -Due to patient's failed outpatient treatment with clindamycin and 21,000 white count will give the patient IV vancomycin 1.5 g for cellulitis. -(1220) spoke with hospitalist at [facility], Mariza, who has stated that she will come see the patient and we would further discuss possible admission for this patient for IV antibiotic therapy due to failed outpatient treatment with p.o. antibiotics.. - Spoke with hospitalist at 1228 who stated that she would recommend getting a CT of the left upper extremity to rule out deep abscess.. Will order CT of left upper extremity with contrast. - CT of the humerus shows 1. Cellulitic changes centered at the elbow extending into the distal upper arm and proximal forearm. There is fluid in the olecranon bursa consistent with bursitis, septic bursitis not excluded on the basis of CT. Correlate clinically. 2. Long head triceps myositis suggested. Correlate clinically. 3. Enlarged nodes in the axilla likely reactive 4. No acute fracture, no acute osseous abnormalities. No osteomyelitis. - Spoke to hospitalist at [facility] at 2:45 PM who is agreed to accept this patient for IV antibiotics for cellulitis of the left arm. Patient's vital signs are stable at time of admissions. Course Course 02/16/25 11:12 02/16/25 11:12 Orders, Labs, Meds: Lab Review 02/16/25 02/16/25 11:12 11:14 WBC 21.69 H RBC 5.04 Hgb 15.0 Hct 46.6 MCV 92.5 MCH 29.8 MCHC 32.2 RDW Coeff of Rosemary 13.0 Plt Count 220 Immature Gran % (Auto) 0.8 Neut % (Auto) 79.4 H Lymph % (Auto) 6.5 L Jay % (Auto) 10.8 H Eos % (Auto) 2.1 Baso % (Auto) 0.4 Neut # (Auto) 17.2 H Lymph # (Auto) 1.4 Jay # (Auto) 2.4 H Eos # (Auto) 0.5 Baso # (Auto) 0.1 Immature Gran # (Auto) 0.2 Sodium 138.2 Potassium 3.33 L Chloride 103.4 Carbon Dioxide 24.6 Anion Gap 13.53 BUN 14.6 Creatinine 0.69 Estimated GFR (MDRD) 117.00 BUN/Creatinine Ratio 21.15 Glucose 273.0 H Calcium 9.43 Total Bilirubin 0.43 AST 22.1 ALT 17.9 Alkaline Phosphatase 97.0 Total Protein 7.58 Albumin 4.46 Globulin 3.12 Albumin/Globulin Ratio 1.42 Influ A Molecular Assay Negative by naat Influ B Molecular Assay Negative by naat SARS CoV-2 RNA Rapid SAMIA Negative Orders Category Date Time Status NPO REMINDER: IMAGING ONCE CARE 02/16/25 12:28 Completed NPO REMINDER: IMAGING ONCE CARE 02/16/25 12:44 Completed BLOOD CULTURE (ED ONLY) Stat LAB 02/16/25 12:43 Received CBC W/ AUTO DIFF Stat LAB 02/16/25 11:12 Completed CMP [COMPREHENSIVE METABOLIC PANEL] Stat LAB 02/16/25 11:12 Completed COVID [SARS COV-2 RNA RAPID SAMIA] Stat LAB 02/16/25 11:14 Completed FLU A & B MOLECULAR [FLU A/B MOLECULAR] Stat LAB 02/16/25 11:14 Completed RAPID STREP SCREEN [MOLECULAR GROUP A STREP] Stat LAB 02/16/25 11:14 Completed Iohexol [Omnipaque 350 mg/ml 100Ml] Meds 02/16/25 13:06 Discontinued 100 ml IVP ONCE ONE Metoclopramide HCl [Reglan] Meds 02/16/25 11:09 Discontinued 10 mg PO ONCE STA Vancomycin/Water For Inj (Peg) [Vancomycin 1.5 Gram/300 Meds 02/16/25 12:17 Discontinued ml Premix] 1.5 gm in [address] FOREARM LEFT WITH CONTRAST Stat RADS 02/16/25 12:[address] HUMERUS LEFT WITH CONTRAST Stat RADS 02/16/25 12:43 Completed US VENOUS SCAN LT ARM [U/S VENOUS SCAN LT ARM] Stat RADS 02/16/25 11:04 Completed Medications Discontinued Medications Generic Name Dose Route Start Last Admin Trade Name Freq PRN Reason Stop Dose Admin VANCOMYCIN/WATER FOR INJ (PEG) 1.5 gm in 300 mls @ 200 mls/hr 02/16/25 12:17 02/16/25 13:26 Vancomycin 1.5 Gram/300 Ml Premix IV 02/16/25 13:46 200 mls/hr ONCE ONE Administration Iohexol 100 ml 02/16/25 13:06 02/16/25 13:06 Iohexol 350 Mg/Ml 100ml IVP 02/16/25 13:07 100 ml ONCE ONE Administration Metoclopramide HCl 10 mg 02/16/25 11:09 02/16/25 11:45 Metoclopramide Hcl 10 Mg Tablet PO 02/16/25 11:10 10 mg ONCE STA Administration Vital Signs: Temp Pulse Resp BP Pulse Ox 02/16/25 11:01 97.5 F L 96 18 149/101 H 96 Discharge Plan Discharge Patient Disposition: ADMITTED INPATIENT Discharge Problem: Left upper extremity swelling, Cellulitis of arm, left Myositis Qualifiers: Myositis type: unspecified type Myositis location: upper extremity Laterality: left Qualified Code(s): M60.9 - Myositis, unspecified Bursitis, olecranon Qualifiers: Laterality: left Qualified Code(s): M70.22 - Olecranon bursitis, left elbow Did you review [place] ARCHITECTURAL REPRESENTATIVE for ALL controlled substances?: Not Applicable ED Provider: ROMERO HUTTON Condition: Stable
[2025-02-16 11:15] LABS: IMMATURE GRANULOCYTE # (AUTO) 0.2 (0.0-1.0); IMMATURE GRANULOCYTE % (AUTO) 0.8 % (0.0-5.0); RDW COEFFICIENT OF VARIATION 13.0 % (11.6-14.8)
[2025-02-16 11:28] LABS: CREATININE 0.69 mg/dL (0.60-1.10)
[2025-02-16] MEDS: REGLAN PO STA (11:45)
[2025-02-16 11:47] LABS: MOLECULAR FLU A NEGATIVE BY NAAT (NEGATIVE); MOLECULAR FLU B NEGATIVE BY NAAT (NEGATIVE)
[2025-02-16 11:48] LABS: SARS COV-2 RNA RAPID NAAT NEGATIVE (NEGATIVE)
--- NOTE | 2025-02-16 12:02 | US ---
EXAM: LEFT UPPER EXTREMITY DEEP VENOUS ULTRASOUND WITH DOPPLER IMAGING HISTORY: Left upper extremity pain and swelling. TECHNIQUE: Griffin-scale ultrasound with compression maneuvers and color and spectral Doppler at rest and with augmentation of the veins was performed. Images were obtained and stored in a permanent archive. COMPARISON: None. FINDINGS: LEFT UPPER EXTREMITY: Internal jugular: Normal compression. Normal flow on color Doppler images. Normal response to augmentation. Subclavian: Normal compression. Normal flow on color Doppler images. Normal response to augmentation. Axillary: Normal compression. Normal flow on color Doppler images. Normal response to augmentation. Brachial: Normal compression. Normal flow on color Doppler images. Normal response to augmentation. Radial: Normal compression. Normal flow on color Doppler images. Ulnar: Normal compression. Normal flow on color Doppler images. Cephalic (Superficial): Normal compression. Normal flow on color Doppler images. Basilic (Superficial): Normal compression. Normal flow on color Doppler images. Median Cubital (Superficial): Normal compression. Normal flow on color Doppler images. Other: None. IMPRESSION: 1. No deep venous thrombosis (DVT) in the left upper extremity. 2. No superficial venous thrombosis (SVT) in the left upper extremity.
[2025-02-16] MEDS ORDERED: CLEOCIN IM ONE (12:10)
[2025-02-16] MEDS: OMNIPAQUE 350 MG/ML 100ML IVP ONE (13:06)
[2025-02-16] MEDS: VANCOMYCIN 1.5 GRAM/300 ML PREMIX 1.5 GM/300 ML BAG IV ONE (13:26)
--- NOTE | 2025-02-16 14:30 | CT ---
EXAM: CT LEFT HUMERUS WITHOUT CONTRAST HISTORY: Cellulitis LEFT upper extremity TECHNIQUE: CT scan of the humerus WITHOUT intravenous contrast was performed. Coronal and sagittal reformatted images were obtained from the axial source images. Images were reviewed on a high-resolution PACS workstation. DICOM images are available. COMPARISON: None. FINDINGS: No acute bony abnormalities detected. Enlarged likely reactive lymph nodes in the axilla. There is skin thickening and extensive subcutaneous stranding centered at the dorsal level extending to the adjacent upper arm and proximal forearm. There appears to be low density fluid within the olecranon bursa which is mildly distended. This is near the epicenter of the inflammatory/infectious change. No evidence of significant elbow joint effusion to suggest septic arthritis. There is heterogeneous appearance of the long head of the triceps particularly superficially at its superficial fascia which may suggest myositis. No definite intramuscular abscess. IMPRESSION: 1. Cellulitic changes centered at the elbow extending into the distal upper arm and proximal forearm. There is fluid in the olecranon bursa consistent with bursitis, septic bursitis not excluded on the basis of CT. Correlate clinically. 2. Long head triceps myositis suggested. Correlate clinically. 3. Enlarged nodes in the axilla likely reactive 4. No acute fracture, no acute osseous abnormalities. No osteomyelitis. All CT scans are performed using dose optimization techniques as appropriate to the performed exam and include at least one of the following: Automated exposure control, adjustment of the mA and/or kV according to size, and the use of iterative reconstruction technique.
--- NOTE | 2025-02-16 14:48 | PCM ---
Date of Service Date Seen by Provider: 02/16/25 Time Seen by Provider: 14:00 Admit Day/Time Admission Date: 02/16/25 Admission Time: 14:49 Reason for Admission Chief Complaint: CELLULITIS [facility] Provider Hospital Provider: Manjinder Taveras PA-C, [facility] Primary Care Physician Primary Care Physician: JANIE LE APRN History of Present Illness History of Present Illness: Patient is a 59-year-old male with past medical history of diabetes, hypertension, GERD, hyperlipidemia who presented to the ER with worsening left elbow pain, swelling, redness. He was evaluated by PCP on 02/06 and was given a Decadron shot and prednisone prescription. He was then evaluated in the ER on 02/10 and given diclofenac. It has continued to worsen and it is now spreading up his tricep area. He's also felt fatigued and nauseated. He is diabetic with an A1c of 8.5 earlier this month. He in the ER he was found to have a white count of 20. Ultrasound ruled out DVT. CT shows cellulitis, possible myositis of triceps muscle, fluid in the bursa. He was given vancomycin. Admit to [facility]. Patient states he was given an antibiotic at some point in the last couple weeks but pharmacy at [facility] doesn't have record of that. Prednisone that was prescribed has not been picked up. Case Discussed With Case Discussed With: Patient's case was discussed with the ER Physicians, Dr. Reyes. [facility] Medical History Headache R51.9 - Headache, unspecified (ICD-10) Dizziness R42 - Dizziness and giddiness (ICD-10) Allergic rhinitis J30.9 - Allergic rhinitis, unspecified (ICD-10) Stress at work Z56.6 - Other physical and mental strain related to work (ICD-10) Testicular pain N50.819 - Testicular pain, unspecified (ICD-10) Excessive daytime sleepiness G47.19 - Other hypersomnia (ICD-10) Snoring R06.83 - Snoring (ICD-10) Fatigue R53.83 - Other fatigue (ICD-10) Finger laceration left middle finger S61.219A - Laceration without foreign body of unspecified finger without damage to nail, initial encounter (ICD-10) Exposure to 2019 novel coronavirus Z20.828 - Contact with and (suspected) exposure to other viral communicable diseases (ICD-10) Plantar fasciitis M72.2 - Plantar fascial fibromatosis (ICD-10) Surgical History History of appendectomy Z90.49 - Acquired absence of other specified parts of digestive tract (ICD- 10) Family History FATHER Diabetes Heart attack Mother Diabetes Cancer PATERNAL GRANDFATHER Stroke Social History Smoking and tobacco status: Current some day smoker Tobacco type: cigarettes Tobacco: How many years used: 20 Alcohol intake: never Substance use type: marijuana Vee/scientology: OTHER Special vee needs: No Agree to transfusion: Yes Adopted: No Caregiver/support person: No Foster care: No Household members: spouse Housing: house Marital status: M Lives independently: Yes Number of children: 5 Number of grandchildren: 15 service: No jail: No Current occupational status: employed 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 Pets and animals: Yes History of recent travel: No Do you think of yourself as: straight/heterosexual Current gender identity: male Seatbelt use: always Drives intoxicated or rides with intoxicated electric lift truck driver: No Water heater temperature set < 120 degrees: Yes Working smoke detector in home: Yes Fire extinguisher in home: Yes Carbon monoxide detector in home: Yes Firearms in home: No Allergies Allergies Allergy/AdvReac Type Severity Reaction Status Date / Time No Known Allergies Allergy Verified 02/16/25 11:06 Current Medications Home Medications Acetaminophen (Acetaminophen 325 Mg Tablet) 650 mg PO Q4H PRN PRN Reason: Mild Pain Hydrocodone Bitart/Acetaminophen (Hydrocodone Bit/Acetaminophen 5/325 Mg Tablet) 1 tab PO TID PRN PRN Reason: MODERATE PAIN Amlodipine Besylate (Amlodipine Besylate 5 Mg Tablet) 5 mg PO DAILY HALI Aspirin (Aspirin 81 Mg Tablet.) 81 mg PO DAILYWM2 HALI Dextrose (Dextrose 50 % In Water 50 Ml Disp.Syrin) 50 ml IVP ONCE PRN; Protocol PRN Reason: Unconscious Hypoglycemia Empagliflozin (Empagliflozin 10 Mg Tablet) 25 mg PO DAILY HALI Cefazolin Sodium/Dextrose (Ancef 2 Gm/50 Ml Premix) 2 gm in 50 mls @ 75 mls/hr IV Q8HR [facility] Stop: 02/19/25 15:29 Last Admin: 02/16/25 16:26 Dose: 75 mls/hr VANCOMYCIN/WATER FOR INJ (PEG) (Vancomycin 1.25 Gm/250 Ml Bag) 1.25 gm in 250 mls @ 250 mls/hr IV Q8HR [facility] Stop: 02/19/25 20:59 Last Admin: 02/16/25 20:12 Dose: 250 mls/hr Insulin Human Lispro (Insulin Lispro 100 Unit/Ml (10 Ml Vial)) 0 unit SUBCUT PRN PRN; Protocol PRN Reason: Hyperglycemia Last Admin: 02/16/25 20:27 Dose: 4 unit Losartan Potassium (Losartan Potassium 100 Mg Tablet) 100 mg PO DAILY [facility] Omeprazole (Omeprazole 20 Mg Capsule.Dr) 40 mg PO QDAC2 [facility] Ondansetron HCl (Ondansetron Hcl/Pf 4 Mg/2 Ml Sdv) 4 mg IVP Q6H PRN PRN Reason: Nausea / Vomiting Rosuvastatin Calcium (Rosuvastatin Calcium 10 Mg Tablet) 40 mg PO DAILY [facility] albuterol sulfate 90 mcg/actuation aerosol inhaler (ProAir HFA) 8.5 g INH DAILY 10/15/17 [History Confirmed 02/16/25] aspirin 81 mg tablet,delayed release (Adult Low Dose Aspirin) 81 mg PO QDAY 01/23/20 [History Confirmed 02/16/25] blood sugar diagnostic (Accu-Chek Yesenia Plus test strips) #100 ea 12/08/22 [Rx Confirmed 02/16/25] amlodipine 5 mg tablet 5 mg PO QDAY #30 tabs 02/04/23 [Rx Confirmed 02/16/25] losartan 100 mg tablet 100 mg PO DAILY #90 tabs 07/05/24 [Rx Confirmed 02/16/25] metformin 1,000 mg tablet 1,000 mg PO 2XD #180 tabs 08/10/24 [Rx Confirmed 02/16/25] hydrocodone 5 mg-acetaminophen 325 mg tablet 1 tab PO TID PRN pain #30 tabs 10/25/24 [Rx Confirmed 02/16/25] omeprazole 40 mg capsule,delayed release See Rx Instructions .Route .COMPLEX #90 caps 12/05/24 [Rx Confirmed 02/16/25] empagliflozin 25 mg tablet (Jardiance) 25 mg PO DAILY #90 tabs 12/08/24 [Rx Confirmed 02/16/25] rosuvastatin 40 mg tablet 40 mg PO DAILY #90 tabs 12/08/24 [Rx Confirmed 02/16/25] tirzepatide 5 mg/0.5 mL subcutaneous pen injector (Mounjaro) 5 mg (0.5 mL) subcut QWEEK #2 mL 02/06/25 [Rx Confirmed 02/16/25] diclofenac sodium 75 mg tablet,delayed release 75 mg PO BID #14 tabs 02/10/25 [Rx Confirmed 02/16/25] Opioid Naive vs. Tolerant Does Patient Take Opioids?: No Is Patient Opioid Naive?: Yes What is Opioid Naive?: *Opioid Naive implies the patient is not already taking opioids or not chronically receiving opioids on a daily basis. *PRN dosing is not "usually" associated with tolerance. *Patients are at higher risk of over-sedation and aspiration. Is Patient Opioid Tolerant?: No What is Opioid Tolerant?: *Opioid Tolerance implies less than the expected response to an opioid. *Acquired tolerance is defined by the patient taking 60mg of oral morphine daily (or equianalgesic dose of another opioid) for 1 week or more. *Often associated with chronic pain. *May take more than usual dose to achieve desired pain control. Review of Systems Constitutional: Reports Fatigue; Denies Fever Head: Reports Atraumatic Cardiovascular: Denies Chest pain Respiratory: Denies Cough or Shortness of air Gastrointestinal: Reports Nausea; Denies Vomiting, Diarrhea or Abdominal pain Genitourinary: Denies Dysuria or Hematuria Musculoskeletal: Reports Muscle Pain and Other (left upper arm pain/swelling ) Physical examination Most Recent Vital Signs: Most Recent Vital Signs Temperature 97.5 F L 02/16/25 11:01 Temperature Source Temporal Artery Scan 02/16/25 11:01 Pulse Rate 96 02/16/25 11:01 Respiratory Rate 18 02/16/25 11:01 Blood Pressure 149/101 H 02/16/25 11:01 O2 Sat by Pulse Oximetry 96 02/16/25 11:01 Height 6 ft 1 in 02/16/25 11:01 Weight 116.4 kg 02/16/25 11:01 Telemetry Heart Rate 109 H 10/28/16 13:00 Telemetry SPO2 96 03/06/14 01:00 Appearance: Positive No Apparent Distress and Alert and Oriented x3 Skin: Positive [place], Warm, Good Turgor and Good Color HEENT: Positive Normocephalic and Atraumatic Neck: Positive Supple and Midline Trachea Chest/Lungs: Positive Clear to Auscultation Bilaterally; Negative Rales, Rhonci or Wheezes Heart: Positive RRR GI/: Positive Soft, Nontender, Bowel Sounds Normal and No Distention Neurological: Positive Cranial Nerves Intact, Alert, Oriented and Muscle Strength 5/5 in Upper and Lower Extremities Bilaterally Psychiatric: Positive Oriented x4, Appropriate Mood and Appropriate Affect Additional Findings: left upper ext - erythema involving medial aspect of elbow and tricep area with significant induration of medial/posterior tricep. No open wounds or drainage. Pulses and sensation intact. Good passive rom of elbow but does have pain with rom. No obvious fluctuance noted. Labs This Visit Labs This Visit: Labs This Visit 02/16/25 02/16/25 11:12 11:14 WBC 21.69 H RBC 5.04 Hgb 15.0 Hct 46.6 MCV 92.5 MCH 29.8 MCHC 32.2 RDW Coeff of Rosemary 13.0 Plt Count 220 Immature Gran % (Auto) 0.8 Neut % (Auto) 79.4 H Lymph % (Auto) 6.5 L [place] % (Auto) 10.8 H Eos % (Auto) 2.1 Baso % (Auto) 0.4 Neut # (Auto) 17.2 H Lymph # (Auto) 1.4 [place] # (Auto) 2.4 H Eos # (Auto) 0.5 Baso # (Auto) 0.1 Immature Gran # (Auto) 0.2 Sodium 138.2 Potassium 3.33 L Chloride 103.4 Carbon Dioxide 24.6 Anion Gap 13.53 BUN 14.6 Creatinine 0.69 Estimated GFR (MDRD) 117.00 BUN/Creatinine Ratio 21.15 Glucose 273.0 H Calcium 9.43 Total Bilirubin 0.43 AST 22.1 ALT 17.9 Alkaline Phosphatase 97.0 Total Protein 7.58 Albumin 4.46 Globulin 3.12 Albumin/Globulin Ratio 1.42 Influ A Molecular Assay Negative by naat Influ B Molecular Assay Negative by naat SARS CoV-2 RNA Rapid SAMIA Negative Microbiology This Visit 02/16/25 11:14 Throat Group A Strep Molecular Assay - Final Imaging Imaging: EXAM: LEFT UPPER EXTREMITY DEEP VENOUS ULTRASOUND WITH DOPPLER IMAGING HISTORY: Left upper extremity pain and swelling. TECHNIQUE: Griffin-scale ultrasound with compression maneuvers and color and spectral Doppler at rest and with augmentation of the veins was performed. Images were obtained and stored in a permanent archive. COMPARISON: None. FINDINGS: LEFT UPPER EXTREMITY: Internal jugular: Normal compression. Normal flow on color Doppler images. Normal response to augmentation. Subclavian: Normal compression. Normal flow on color Doppler images. Normal response to augmentation. Axillary: Normal compression. Normal flow on color Doppler images. Normal response to augmentation. Brachial: Normal compression. Normal flow on color Doppler images. Normal response to augmentation. Radial: Normal compression. Normal flow on color Doppler images. Ulnar: Normal compression. Normal flow on color Doppler images. Cephalic (Superficial): Normal compression. Normal flow on color Doppler images. Basilic (Superficial): Normal compression. Normal flow on color Doppler images. Median Cubital (Superficial): Normal compression. Normal flow on color Doppler images. Other: None. IMPRESSION: 1. No deep venous thrombosis (DVT) in the left upper extremity. 2. No superficial venous thrombosis (SVT) in the left upper extremity. EXAM: CT LEFT HUMERUS WITHOUT CONTRAST HISTORY: Cellulitis LEFT upper extremity TECHNIQUE: CT scan of the humerus WITHOUT intravenous contrast was performed. Coronal and sagittal reformatted images were obtained from the axial source images. Images were reviewed on a high-resolution PACS workstation. DICOM images are available. COMPARISON: None. FINDINGS: No acute bony abnormalities detected. Enlarged likely reactive lymph nodes in the axilla. There is skin thickening and extensive subcutaneous stranding centered at the dorsal level extending to the adjacent upper arm and proximal forearm. There appears to be low density fluid within the olecranon bursa which is mildly distended. This is near the epicenter of the inflammatory/infectious change. No evidence of significant elbow joint effusion to suggest septic arthritis. There is heterogeneous appearance of the long head of the triceps particularly superficially at its superficial fascia which may suggest myositis. No definite intramuscular abscess. IMPRESSION: 1. Cellulitic changes centered at the elbow extending into the distal upper arm and proximal forearm. There is fluid in the olecranon bursa consistent with bursitis, septic bursitis not excluded on the basis of CT. Correlate clinically. 2. Long head triceps myositis suggested. Correlate clinically. 3. Enlarged nodes in the axilla likely reactive 4. No acute fracture, no acute osseous abnormalities. No osteomyelitis. Review Statement Review Statement: I have independently reviewed and interpreted the labs/EKGs/imaging that were ordered by the ER provider. I have reviewed all outside records that are available currently in our EMR including imaging/notes/labs from previous visits. Plan Plan: 1. Cellulitis of left upper extremity - Will cover with ancef and vanc for now, no drainage or wound for culture, has diabetes. Trend wbc. Tight control of glucose. Pain control. Monitor for compartment syndrome s&sx. 2. DMT2, uncontrolled - Last a1c of 8.5. Will do humalog sliding scale, accuchecks achs, diabetic diet, hold metformin 3. Hypertension - Cont home meds 4. Hyperlipidemia - Cont home meds 5. GERD - Cont home meds DVT Prophylaxis: Ambulation Time Spent: Greater than 80 minutes spent with patient, 50% of the time spent with this patient was devoted to counseling and coordination of care. [facility] Plannin minutes spent discussing advance care planning. Smoking Cessation: 3 minutes spent discussing smoking cessation. Disposition: Will likely require >2 midnights given significance of cellulitis, induration, and comorbidity of uncontrolled diabetes. Has failed outpatient management via pcp and recent ER visit. Admit to: Inpatient Discussed Plan of Care with Dr. Nakul Taylor.
[2025-02-16] MEDS ORDERED: DEXTROSE 50%-WATER ABBOJECT IVP PRN (15:03)
[2025-02-16] MEDS ORDERED: TYLENOL PO PRN (15:03)
[2025-02-16] MEDS ORDERED: ZOFRAN SDV IVP PRN (15:03)
--- NOTE | 2025-02-16 15:13 | CT ---
EXAM: CT OF THE LEFT FOREARM WITH INTRAVENOUS CONTRAST COMPARISON: CT of the left humerus 02/16/2025. Left elbow radiographs 02/10/2025. Ultrasound/venous Doppler of the left upper extremity 02/16/2025. HISTORY: Left arm redness and swelling. Cellulitis. TECHNIQUE: CT images were obtained through the left forearm following the intravenous administration of contrast. Axial reconstructions with sagittal and coronal reformats were provided FINDINGS: Lower attenuation collection with some peripheral enhancement and adjacent soft tissue thickening measuring 4.0 x 2.9 x 1.4 cm within the subcutaneous tissues posteriorly at the olecranon process through the level of the distal triceps. This could represent olecranon bursitis though with adjacent soft tissue inflammation concerning for superimposed infection with septic bursitis/abscess. Superficial irregularity the overlying soft tissues without deep soft tissue gas. Subcutaneous edema and ill-defined subcutaneous fluid extend through the more distal portion of the forearm without additional fluid collection. Limited assessment blood vessels on the in the basis of this non angiographic study. No moderate to large elbow effusion. No evidence of an acute fracture or dislocation. No evidence of acute osteomyelitis. Degenerative spurring at the wrist and elbow on limited assessment. No focal concerning osseous lesion. IMPRESSION: Cellulitis. Complex fluid collection posteriorly at the level of the olecranon process with appearance concerning for bursitis/abscess as detailed above. Overlying superficial irregularity without deep soft tissue gas. No evidence of acute osteomyelitis. Additional chronic/degenerative changes. All CT scans are performed using dose optimization techniques as appropriate to the performed exam and include at least one of the following: Automated exposure control, adjustment of the mA and/or kV according to size, and the use of iterative reconstruction technique.
[2025-02-16 16:15] VITALS: BMI 32.8
[2025-02-16] MEDS: ANCEF 2 GM/50 ML PREMIX 2 GM/50 ML BAG IV SCH (16:26)
[2025-02-16] MEDS: VANCOMYCIN 1.25 GM/250 ML BAG 1.25 GM/250 ML BAG IV SCH (20:12)
[2025-02-16] MEDS: HUMALOG (10 ML VIAL) SUBCUT PRN (20:27)
[2025-02-17] MEDS: PRILOSEC PO SCH (05:12)
[2025-02-17 05:22] LABS: IMMATURE GRANULOCYTE # (AUTO) 0.2 (0.0-1.0); IMMATURE GRANULOCYTE % (AUTO) 0.9 % (0.0-5.0); RDW COEFFICIENT OF VARIATION 13.0 % (11.6-14.8)
[2025-02-17 05:34] LABS: CREATININE 0.59 mg/dL (0.60-1.10)
[2025-02-17] MEDS: NORCO 5-325 PO PRN (06:34)
[2025-02-17] MEDS: ASPIRIN EC PO SCH (07:36)
[2025-02-17] MEDS ORDERED: PRILOSEC PO SCH (09:00)
[2025-02-17] MEDS: NORVASC PO SCH (09:05)
[2025-02-17] MEDS: CRESTOR PO SCH (09:05)
[2025-02-17] MEDS: COZAAR PO SCH (09:05)
[2025-02-17] MEDS: JARDIANCE PO SCH (09:06)
--- NOTE | 2025-02-17 11:05 | PCM.PROG ---
Date/Time Seen Date Seen by Provider: 02/17/25 Time Seen by Provider: 08:40 Provider Provider: MANJINDER TAVERAS PA-C, [facility] Chief Complaint Chief Complaint: CELLULITIS LUE Subjective Subjective: Patient states his left arm seems better. Wishes to go home today. Wbc count trending down. No fever. Objective Appearance: Positive No Apparent Distress and Alert and Oriented x3 Chest/Lungs: Positive Clear to Auscultation Bilaterally; Negative Rales, Rhonci or Wheezes Heart: Positive RRR GI/: Positive Soft, Nontender, Bowel Sounds Normal and No Distention Neurological: Positive Cranial Nerves Intact, Alert and Oriented Additional Findings: left upper ext - erythema involving medial aspect of elbow and tricep area with significant induration of medial/posterior tricep, overall much improved today. No open wounds or drainage. Pulses and sensation intact. Good passive rom of elbow but does have pain with rom. No obvious fluctuance noted. Vital Signs Vital Signs: Vital Signs: Last 24 Hours 02/16/25 15:59 02/16/25 15:59 02/16/25 18:00 Temperature 98.9 F 98.6 F Temperature Source Oral Temporal Artery Scan Pulse Rate 87 90 Pulse Rate [Apical] Pulse Rate [Left Radial] Respiratory Rate 14 18 14 Blood Pressure 145/104 H Blood Pressure Mean 117 Blood Pressure Right Arm 156/102 Blood Pressure Location Left Arm Blood Pressure Position Supine O2 Sat by Pulse Oximetry 98 94 L Oxygen Delivery Method Room Air Room Air Room Air Height 6 ft 1 in Weight 113 kg 02/16/25 20:00 02/16/25 21:11 02/17/25 05:54 Temperature 98 F 97.4 F L Temperature Source Temporal Artery Scan Temporal Artery Scan Pulse Rate 78 79 Pulse Rate [Apical] Pulse Rate [Left Radial] Respiratory Rate 20 18 Blood Pressure 145/87 H 142/81 H Blood Pressure Mean 106 101 Blood Pressure Right Arm Blood Pressure Location Left Arm Left Arm Blood Pressure Position Sitting Supine O2 Sat by Pulse Oximetry 99 98 Oxygen Delivery Method Room Air Room Air Room Air Height Weight 02/17/25 07:22 Temperature Temperature Source Pulse Rate Pulse Rate [Apical] 72 Pulse Rate [Left Radial] 72 Respiratory Rate 18 Blood Pressure Blood Pressure Mean Blood Pressure Right Arm Blood Pressure Location Blood Pressure Position O2 Sat by Pulse Oximetry Oxygen Delivery Method Room Air Height Weight Lab Results Lab Results: Lab Results: Last 24 Hours 02/17/25 02/16/25 02/16/25 04:49 11:14 11:12 WBC 17.39 H 21.69 H RBC 4.86 5.04 Hgb 14.5 15.0 Hct 46.0 46.6 MCV 94.7 H 92.5 MCH 29.8 29.8 MCHC 31.5 L 32.2 RDW Coeff of Rosemary 13.0 13.0 Plt Count 217 220 Immature Gran % (Auto) 0.9 0.8 Neut % (Auto) 72.9 79.4 H Lymph % (Auto) 9.6 L 6.5 L [place] % (Auto) 13.0 H 10.8 H Eos % (Auto) 3.1 2.1 Baso % (Auto) 0.5 0.4 Neut # (Auto) 12.7 H 17.2 H Lymph # (Auto) 1.7 1.4 [place] # (Auto) 2.3 H 2.4 H Eos # (Auto) 0.5 0.5 Baso # (Auto) 0.1 0.1 Immature Gran # (Auto) 0.2 0.2 Sodium 136.5 138.2 Potassium 3.91 3.33 L Chloride 103.6 103.4 Carbon Dioxide 26.2 24.6 Anion Gap 10.61 13.53 BUN 11.0 14.6 Creatinine 0.59 L 0.69 Estimated GFR (MDRD) 141.00 117.00 BUN/Creatinine Ratio 18.64 21.15 Glucose 163.1 H D 273.0 H Calcium 9.30 9.43 Total Bilirubin 0.55 0.43 AST 17.2 22.1 ALT 13.8 17.9 Alkaline Phosphatase 97.0 97.0 Total Protein 7.06 7.58 Albumin 4.04 4.46 Globulin 3.02 3.12 Albumin/Globulin Ratio 1.33 1.42 Influ A Molecular Assay Negative by naat Influ B Molecular Assay Negative by naat SARS CoV-2 RNA Rapid SAMIA Negative Additional Comments Additional Comments: I have independently reviewed and interpreted the labs/EKGs/imaging ordered during this hospital stay. I have reviewed outside records that are available in our EMR that pertain to medical stay including imaging/notes/labs from previous visits. Active Medications Active Medications: Medications Generic Name Dose Route Start Last Admin Trade Name Freq PRN Reason Stop Dose Admin Acetaminophen 650 mg 02/16/25 15:03 Acetaminophen 325 Mg Tablet PO Q4H PRN Mild Pain Hydrocodone Bitart/Acetaminophen 1 tab 02/16/25 16:37 02/17/25 06:34 Hydrocodone Bit/Acetaminophen 5/325 Mg Tablet PO 1 tab TID PRN Administration MODERATE PAIN Amlodipine Besylate 5 mg 02/17/25 09:00 02/17/25 09:05 Amlodipine Besylate 5 Mg Tablet PO 5 mg DAILY HALI Administration Aspirin 81 mg 02/17/25 07:30 02/17/25 07:36 Aspirin 81 Mg Tablet. PO 81 mg DAILYWM2 HALI Administration Dextrose 50 ml 02/16/25 15:03 Dextrose 50 % In Water 50 Ml Disp.Syrin IVP ONCE PRN Unconscious Hypoglycemia Protocol Empagliflozin 25 mg 02/17/25 09:00 02/17/25 09:06 Empagliflozin 10 Mg Tablet PO 25 mg DAILY HALI Administration Cefazolin Sodium/Dextrose 2 gm in 50 mls @ 75 mls/hr 02/16/25 15:30 02/17/25 04:59 Ancef 2 Gm/50 Ml Premix IV 02/19/25 15:29 75 mls/hr Q8HR HALI Administration VANCOMYCIN/WATER FOR INJ (PEG) 1.25 gm in 250 mls @ 250 mls/hr 02/16/25 21:00 02/17/25 05:47 Vancomycin 1.25 Gm/250 Ml Bag IV 02/19/25 20:59 250 mls/hr Q8HR HALI Administration Insulin Human Lispro 0 unit 02/16/25 15:03 02/16/25 20:27 Insulin Lispro 100 Unit/Ml (10 Ml Vial) SUBCUT 4 unit PRN PRN Administration Hyperglycemia Protocol Losartan Potassium 100 mg 02/17/25 09:00 02/17/25 09:05 Losartan Potassium 100 Mg Tablet PO 100 mg DAILY HALI Administration Omeprazole 40 mg 02/17/25 06:00 02/17/25 05:12 Omeprazole 20 Mg Capsule. PO 40 mg QDAC2 HALI Administration Ondansetron HCl 4 mg 02/16/25 15:03 Ondansetron Hcl/Pf 4 Mg/2 Ml Sdv IVP Q6H PRN Nausea / Vomiting Rosuvastatin Calcium 40 mg 02/17/25 09:00 02/17/25 09:05 Rosuvastatin Calcium 10 Mg Tablet PO 40 mg DAILY HALI Administration Sodium Chloride 1 syr 02/16/25 21:00 02/17/25 05:10 0.9% Sodium Chloride 10 Ml Disp.Syrin IVF 1 syr Q8HR HALI Administration Plan Plan: 1. Cellulitis of left upper extremity due to underlying olecranon bursitis, extensive - Improved, less likely abscess given marked improvement today, no fevers. Continue to cover with ancef and vanc for now, mrsa swab pending, no drainage or wound for culture, has diabetes. Trend wbc. Tight control of glucose. Pain control. Monitor for compartment syndrome s&sx. 2. DMT2, uncontrolled - Last a1c of 8.5. Will do humalog sliding scale, accuchecks achs, diabetic diet, hold metformin 3. Hypertension - Cont home meds 4. Hyperlipidemia - Cont home meds 5. GERD - Cont home meds 6. Smoker - May have nicotine patch if needed DVT Prophylaxis: Ambulation Dispo: Will require at least one more midnight Review Statement Review Statement: I have personally discussed and reviewed the patient's visit/currently labs/ imaging/decision making with Dr. Taylor, my supervising attending. Greater that 50 minutes spent with patient, 50% of the time spent with this patient was devoted to counseling and coordination of care.
[2025-02-17] MEDS: NICODERM 21 MG TD SCH (11:52)
[2025-02-17] MEDS ORDERED: VANCOMYCIN 1.25 GM/250 ML BAG 1.25 GM/250 ML BAG IV SCH (21:00)
[2025-02-18 05:06] VITALS: BP 148/110; PULSE 80; RESP 18; TEMP 97.3
[2025-02-18 05:28] LABS: IMMATURE GRANULOCYTE # (AUTO) 0.2 (0.0-1.0); IMMATURE GRANULOCYTE % (AUTO) 1.2 % (0.0-5.0); RDW COEFFICIENT OF VARIATION 12.9 % (11.6-14.8)
[2025-02-18 05:44] LABS: CREATININE 0.59 mg/dL (0.60-1.10)
--- NOTE | 2025-02-18 09:41 | DCSUM ---
Admission Date Admission Date: 02/16/25 Discharge Date Discharge Date: 02/18/25 Admission Diagnosis Admission Diagnosis: 1. Cellulitis of left upper extremity due to underlying olecranon bursitis, extensive Discharge Diagnosis Discharge Diagnosis: 1. Cellulitis of left upper extremity due to underlying olecranon bursitis, extensive - much improved 2. DMT2, uncontrolled 3. Hypertension 4. Hyperlipidemia 5. GERD 6. Smoker Hospital Provider Hospital Provider: MANJINDER TAVERAS PA-C, [facility] [place] Primary Care Physician Primary Care Physician: JANIE LE APRN Summary of History and Physical Summary of History and Physical: Patient is a 59-year-old male with past medical history of diabetes, hypertension, GERD, hyperlipidemia who presented to the ER with worsening left elbow pain, swelling, redness. He was evaluated by PCP on 02/06 and was given a Decadron shot and prednisone prescription. He was then evaluated in the ER on 02/10 and given diclofenac. It has continued to worsen and it is now spreading up his tricep area. He's also felt fatigued and nauseated. He is diabetic with an A1c of 8.5 earlier this month. In the ER he was found to have a white count of 20. Ultrasound ruled out DVT. CT shows cellulitis, possible myositis of triceps muscle, fluid in the bursa. He was given vancomycin. Admit to [facility]. Patient states he was given an antibiotic at some point in the last couple weeks but pharmacy at [facility] doesn't have record of that. Prednisone that was prescribed has not been picked up. Hospital Course Subjective: Forearm CT came back and was read by a different radiologist than the humerus CT, and read as bursitis vs abscess. Patient was treated with vanc and ancef. His cellulitis significantly improved. Overall felt to be more related to complication of bursitis, less likely abscess. He has good passive ROM, pulses, and sensation. Erythema at time of discharge has resolved except for medial tricep area which is much improved compared to admission. Elbow overall is significant improved. Patient is adamant about going home today. Has a pcp follow up. Will send home on doxy and keflex. Red flags on when to return discussed. Appearance: Pleasant, No Apparent Distress and Alert HEENT: MMM and Supple CVS: Other (RRR) Abdomen: Soft, Non-Tender and No Distention Respiratory: No Accessory Muscle Use Extremities: No Edema Additional Findings: left upper ext - erythema involving medial aspect of elbow and tricep area significantly improved since admission/mostly resolved, remaining erythema localized to medial tricep area, and indurated/thickened area is significant improved. Swelling improved. No open wounds or drainage. Pulses and sensation intact. Good passive rom of elbow. No obvious fluctuance noted. Vital Signs: Most Recent Vital Signs Temperature 97.3 F L 02/18/25 05:04 Temperature Source Temporal Artery Scan 02/18/25 05:04 Temperature Source Temporal Artery Scan 02/16/25 11:01 Pulse Rate 80 02/18/25 05:04 Respiratory Rate 18 02/18/25 05:04 Blood Pressure 148/110 H 02/18/25 05:04 Blood Pressure Mean 122 02/18/25 05:04 Blood Pressure Right Arm 156/102 02/16/25 15:59 Blood Pressure Location Right Arm 02/18/25 05:04 Blood Pressure Position Sitting 02/18/25 05:04 O2 Sat by Pulse Oximetry 96 02/18/25 05:04 Oxygen Delivery Method Room Air 02/18/25 08:00 Height 6 ft 1 in 02/16/25 15:59 Weight 113 kg 02/16/25 15:59 Telemetry Heart Rate 109 H 10/28/16 13:00 Telemetry SPO2 96 03/06/14 01:00 Imaging: EXAM: CT LEFT HUMERUS WITHOUT CONTRAST HISTORY: Cellulitis LEFT upper extremity TECHNIQUE: CT scan of the humerus WITHOUT intravenous contrast was performed. Coronal and sagittal reformatted images were obtained from the axial source images. Images were reviewed on a high-resolution PACS workstation. DICOM images are available. COMPARISON: None. FINDINGS: No acute bony abnormalities detected. Enlarged likely reactive lymph nodes in the axilla. There is skin thickening and extensive subcutaneous stranding centered at the dorsal level extending to the adjacent upper arm and proximal forearm. There appears to be low density fluid within the olecranon bursa which is mildly distended. This is near the epicenter of the inflammatory/infectious change. No evidence of significant elb ow joint effusion to suggest septic arthritis. There is heterogeneous appearance of the long head of the triceps particularly superficially at its superficial fascia which may suggest myositis. No definite intramuscular abscess. IMPRESSION: 1. Cellulitic changes centered at the elbow extending into the distal upper arm and proximal forearm. There is fluid in the olecranon bursa consistent with bursitis, septic bursitis not excluded on the basis of CT. Correlate clinically. 2. Long head triceps myositis suggested. Correlate clinically. 3. Enlarged nodes in the axilla likely reactive 4. No acute fracture, no acute osseous abnormalities. No osteomyelitis. EXAM: CT OF THE LEFT FOREARM WITH INTRAVENOUS CONTRAST COMPARISON: CT of the left humerus 02/16/2025. Left elbow radiographs 02/10/2025. Ultrasound/venous Doppler of the left upper extremity 02/16/2025. HISTORY: Left arm redness and swelling. Cellulitis. TECHNIQUE: CT images were obtained through the left forearm following the intravenous administration of contrast. Axial reconstructions with sagittal and coronal reformats were provided FINDINGS: Lower attenuation collection with some peripheral enhancement and adjacent soft tissue thickening measuring 4.0 x 2.9 x 1.4 cm within the subcutaneous tissues posteriorly at the olecranon process through the level of the distal triceps. This could represent olecranon bursitis though with adjacent soft tissue inflammation concerning for superimposed infection with septic bursitis/abscess. Superficial irregularity the overlying soft tissues without deep soft tissue gas. Subcutaneous edema and ill-defined subcutaneous fluid extend through the more distal portion of the forearm without additional fluid collection. Limited assessment blood vessels on the in the basis of this non angiographic study. No moderate to large elbow effusion. No evidence of an acute fracture or dislocation. No evidence of acute osteomyelitis. Degenerative spurring at the wrist and elbow on limited assessment. No focal concerning osseous lesion. IMPRESSION: Cellulitis. Complex fluid collection posteriorly at the level of the olecranon process with appearance concerning for bursitis/abscess as detailed above. Overlying superficial irregularity without deep soft tissue gas. No evidence of acute osteomyelitis. Additional chronic/degenerative changes. Lab Results Last 24 Hours: 02/18/25 02/17/25 02/17/25 05:11 21:03 12:55 WBC 14.09 H RBC 5.05 Hgb 15.0 Hct 47.2 MCV 93.5 MCH 29.7 MCHC 31.8 RDW Coeff of Rosemary 12.9 Plt Count 235 Immature Gran % (Auto) 1.2 Neut % (Auto) 71.6 Lymph % (Auto) 12.1 [place] % (Auto) 11.6 H Eos % (Auto) 3.1 Baso % (Auto) 0.4 Neut # (Auto) 10.1 H Lymph # (Auto) 1.7 [place] # (Auto) 1.6 Eos # (Auto) 0.4 Baso # (Auto) 0.1 Immature Gran # (Auto) 0.2 Sodium 136.9 Potassium 4.04 Chloride 104.5 Carbon Dioxide 23.7 Anion Gap 12.74 BUN 14.3 Creatinine 0.59 L Estimated GFR (MDRD) 141.00 BUN/Creatinine Ratio 24.23 Glucose 146.5 H Calcium 9.44 Total Bilirubin 0.46 AST 18.9 ALT 16.4 Alkaline Phosphatase 101.1 Troponin I < 0.012 Total Protein 7.21 Albumin 4.17 Globulin 3.04 Albumin/Globulin Ratio 1.37 Vancomycin Trough 10.498 Discharge Instructions Discharge Planning: Discharge Planning > [address] Nakul Taylor Discharge Medications: Medications at Discharge (Home Meds & RX) albuterol sulfate 90 mcg/actuation aerosol inhaler (ProAir HFA) 8.5 g INH DAILY 10/15/17 aspirin 81 mg tablet,delayed release (Adult Low Dose Aspirin) 81 mg PO QDAY 01/23/20 blood sugar diagnostic (Accu-Chek Yesenia Plus test strips) #100 ea 12/08/22 amlodipine 5 mg tablet 5 mg PO QDAY #30 tabs 02/04/23 losartan 100 mg tablet 100 mg PO DAILY #90 tabs 07/05/24 metformin 1,000 mg tablet 1,000 mg PO 2XD #180 tabs 08/10/24 hydrocodone 5 mg-acetaminophen 325 mg tablet 1 tab PO TID PRN pain #30 tabs 10/25/24 omeprazole 40 mg capsule,delayed release See Rx Instructions .Route .COMPLEX #90 caps 12/05/24 empagliflozin 25 mg tablet (Jardiance) 25 mg PO DAILY #90 tabs 12/08/24 rosuvastatin 40 mg tablet 40 mg PO DAILY #90 tabs 12/08/24 tirzepatide 5 mg/0.5 mL subcutaneous pen injector (Mounjaro) 5 mg (0.5 mL) subcut QWEEK #2 mL 02/06/25 diclofenac sodium 75 mg tablet,delayed release 75 mg PO BID #14 tabs 02/10/25 cephalexin 500 mg capsule 500 mg PO QID 5 days #20 caps 02/18/25 doxycycline monohydrate 100 mg capsule 100 mg PO BID 5 days #10 caps 02/18/25 Discharge Plan Discharge Discharge Orders: Discharge Patient (ONCE); Ordered 02/18/25 Ordered By: MANJINDER TAVERAS Activity Restrictions/Additional Instructions: DISCHARGE TO HOME DX: CELLULITIS PHARMACY: [facility] - FINISH ANTIBIOTICS FOLLOW UP WITH PCP RETURN WITH WORSENING SYMPTOMS [place] AREA Instructions: Cellulitis (ED) Care Plan Goals: Problem: Infection Goal #1: No signs/symptoms of infection Instructions: Monitor for sign/symptoms of infection Monitor temperature Goal #2: White blood cell counts Within Normal Limits Instructions: Obtain labs per physician orders Problem: Alteration in Comfort/Pain Goal: Manage pain at a tolerable level Instructions: Monitor character, location and intensity Express expectations of pain relief Pain medication as ordered Position for maximal comfort Pain management prior to activities Patient Disposition: HOME SELF-CARE Prescriptions: New doxycycline monohydrate 100 mg capsule 100 mg PO BID 5 Days Qty: 10 0RF cephalexin 500 mg capsule 500 mg PO QID 5 Days Qty: 20 0RF Continued metformin 1,000 mg tablet 1,000 mg PO 2XD Qty: 180 0RF omeprazole 40 mg capsule,delayed release(DR/EC) See Rx Instructions .ROUTE .COMPLEX Qty: 90 1RF Dose Instruction: TAKE 1 CAPSULE BY MOUTH DAILY Rx Instructions: TAKE 1 CAPSULE BY MOUTH DAILY Jardiance 25 mg tablet 25 mg PO DAILY Qty: 90 1RF rosuvastatin 40 mg tablet 40 mg PO DAILY Qty: 90 1RF diclofenac sodium 75 mg tablet,delayed release (DR/EC) 75 mg PO BID Qty: 14 0RF albuterol sulfate [ProAir HFA] 200 PUFF/8.5 GM HFA aerosol inhaler 8.5 g INH DAILY aspirin [Adult Low Dose Aspirin] 81 mg tablet,delayed release (DR/EC) 81 mg PO QDAY amlodipine 5 mg tablet 5 mg PO QDAY Qty: 30 3RF losartan 100 mg tablet 100 mg PO DAILY Qty: 90 1RF hydrocodone-acetaminophen 5-325 mg tablet 1 tab PO TID PRN (Reason: pain) Qty: 30 0RF Mounjaro 5 mg/0.5 mL pen injector 5 mg subcut QWEEK Qty: 2 1RF No Action (DME) Accu-Chek Yesenia Plus test strp Strip See Rx Instructions .ROUTE Qty: 100 5RF Rx Instructions: As directed ONE TIME DAILY E11.9 Did you review [place] [employer] for ALL controlled substances?: Not Applicable Discussed opioids are addictive and Narcan is available by prescription or from pharmacy.: No Condition: Stable Referrals: JANIE LE APRN [Primary Care Provider, INTERNAL MEDICINE] - 02/23/25 1:00 pm
== END 2025-02-18 10:10 | disposition home or self-care (01) | DRG 603 ==
LOC: ED 10:54 → MEDSURG B 14:52
PROVIDERS: ADMIT Hospitalist; ATTEND Physician Assistant